=== PATIENT | female | born 1965 | race Caucasian/White ===

== ENCOUNTER 2016-10-08 01:58 | Inpatient (IN) ==
[2016-10-08] MEDS ORDERED: 0.9 % Sodium Chloride 1,000 ML IVC ONE (02:26)
--- NOTE | 2016-10-08 02:36 | Emergency Department Note ---
Disposition Clinical Impression: Encephalitis, Fever of unknown origin, Elevated lactic acid level Altered mental status Qualifiers: Altered mental status type: disorientation Qualified Code(s): R41.0 - Disorientation, unspecified Disposition: Admitted As Inpatient Condition: Fair General Adult HPI - General Chief complaint: ED Fall Stated complaint: fall x2 monday/temp Time Seen by Provider: 10/08/16 02:08 Source: patient, family Mode of arrival: wheelchair Limitations: no limitations Nursing Notes Reviewed: Yes Vital Signs Reviewed: Yes - History of Present Illness HPI Narrative: Patient presents to the ED with the chief complaint of altered mental status and fall. Patient fell twice yesterday evening and when she was checked on by family members. They noticed that she felt very hot and was also confused, talking "out of her head" presented and stated that she had a fever of 102 at home, headache, neck stiffness, generalized weakness and confusion. Denied any cough , abdominal pain, pain or swelling in her legs. She states that she always has left wrist pain and this is about her baseline. Pain Scale: 0 - Related Data Home Medications Medication Instructions Recorded Confirmed Amitriptyline HCl 100 mg PO HS 10/08/16 10/08/16 Aspirin [Lo-Dose Aspirin EC] 81 mg PO DAILY 10/08/16 10/08/16 Gabapentin [Neurontin] 800 mg PO TID 10/08/16 10/08/16 Glimepiride [Amaryl] 1 mg PO DAILY 10/08/16 10/08/16 Lisinopril [Zestril] 20 mg PO DAILY 10/08/16 10/08/16 Metformin HCl [Glucophage] 1,000 mg PO QAM 10/08/16 10/08/16 Pioglitazone [Actos] 15 mg PO DAILY 10/08/16 10/08/16 Previous Rx's Medication Instructions Recorded Hydrocodone/Acetaminophen [[place] 1 tab PO TID PRN #10 tab 09/08/15 5-325 Tablet] Allergies Allergy/AdvReac Type Severity Reaction Status Date / Time No Known Allergies Allergy Verified 10/08/16 02:06 All systems ED: reviewed and negative except as stated. Constitutional: Reports: fever, weakness Eyes: Denies: vision change Cardiovascular: Denies: chest pain Respiratory: Denies: dyspnea Gastrointestinal: Denies: abdominal pain Musculoskeletal: Reports: neck pain Integumentary: Denies: rash Neurological: Reports: headache Endocrine: Reports: fatigue Past Medical History - Past Medical History Attestation: Yes The following information was validated with the patient. Source: patient, old records reviewed, obtained from family Medical history: Reports: asthma, coronary artery disease, diabetes, fibromyalgia, hyperlipidemia, hypertension Psychiatric history: Reports: anxiety, depression [employer] CO[employer] history: Reports: bilateral tubal ligation - Social History Smoking Status: Never smoker Smokeless Tobacco Status: No Alcohol use: Reports: none Drug use: Reports: none Physical Exam - General Limitations: no limitations General appearance: alert, obese, other (Patient is alert but intermittently sleepy) - Head Head exam: atraumatic, normocephalic, normal inspection - Eye Eye exam: Present: normal appearance, PERRL, EOMI. Absent: scleral icterus, conjunctival injection - ENT ENT exam: normal exam, normal oropharynx, mucous membranes moist - Neck Neck exam: Present: normal inspection, full ROM, trachea midline. Absent: meningismus (Patient unable to fully flex her neck. However, this does cause her to have pain. There is no stiffness) - Chest Chest inspection: Present: normal inspection, symmetric chest wall rise - Respiratory Respiratory exam: Present: normal lung sounds bilaterally - Cardiovascular Cardiovascular exam: Present: regular rate, normal rhythm, normal heart sounds - Abdominal Exam Abdominal exam: Present: soft, Non-Tender. Absent: tenderness, distention, guarding, rebound, rigidity - Extremities Exam Extremities exam: Present: normal inspection, full ROM. Absent: tenderness, pedal edema - Neurological Exam Neurological exam: Present: alert, oriented X3, CN II-XII intact - Expanded Neurological Exam Patient oriented to: Present: person, place, time Speech: Present: fluid speech (Patient does have fluid speech, but does seem to have difficulty initiating her response) Cranial nerves: EOM function (II, III, IV, ): Normal, facial sensation (V): Normal, facial palsy (VII): Normal, spinal accessory function (XI): Normal, tongue deviation (XII): Normal Cerebellar function: finger to nose: Normal Motor strength - LUE: 5/5 Motor strength - RUE: 5/5 Motor strength - LLE: 4/5 Motor strength - RLE: 4/5 Upper motor neuron exam: jasmin neglect: Absent bilaterally, pronator drift: Absent bilaterally Sensory exam upper extremity: light touch: Normal Sensory exam lower extremity: light touch: Normal Coma Scale Eye Opening: To Voice Coma Scale Motor Response: Obeys Commands Coma Scale Verbal Response: Confused Coma Scale Total: 13 - Psychiatric Psychiatric exam: Present: flat affect - Skin Skin exam: Present: warm, dry, intact, normal color Course Course Narrative: 50-year-old female presenting with altered mental status, fever and neck stiffness. Family stating the patient's intermittently confused and she is intermittently confused here. Sometimes she is alert and responding appropriately, other times she remains alert, but will respond inappropriately to questions. She meets sepsis criteria, sepsis versus initiated, patient may need a lumbar puncture if an initial workup does not reveal a source for fever as this could be a encephalitis. I think meningitis is much less likely, but also will keep in our differential - Reevaluation(s) Reevaluation #1: Patient does have an elevated lactic acid and has remained confused. We will proceed with lumbar puncture and order antibiotics at this time with a presumptive diagnosis of meningitis versus encephalitis. Time: 03:47 Vital Signs Temperature 102.9 F H 10/08/16 02:02 Pulse Rate 127 10/08/16 02:02 Respiratory Rate 18 10/08/16 02:02 Blood Pressure 131/66 10/08/16 02:02 O2 Sat by Pulse Oximetry 92 10/08/16 02:02 Temperature 102.0 F H 10/08/16 18:22 Pulse Rate 125 10/08/16 18:22 Respiratory Rate 20 10/08/16 18:22 Blood Pressure 101/63 10/08/16 18:22 O2 Sat by Pulse Oximetry 95 10/08/16 18:22 Oxygen Delivery Oxygen Delivery Room Air Procedures - Lumbar Puncture Consent Obtained: written consent Time Out Performed: Yes Patient Position: upright Skin Prep: Povidone-Iodine 1% Local Anesthetic: lidocaine 1% Amount of anesthesia used (mL): 3 Spinal Needle Gauge: 22G Interspace Used: L4-L5 Fluid Initially Obtained: clear Complications: none Medical Decision Making - Medical Records Medical records reviewed: Yes I reviewed the patient's medical records. - Lab Data Lab results reviewed: Yes I reviewed the patient's lab results. Result diagrams: 10/08/16 02:40 10/08/16 02:40 Lab Results 08/12/17 08/12/17 08/12/17 Range/Units 02:15 02:40 02:40 WBC 9.9 (4.3-11.1) K/mcL RBC 4.79 (3.82-4.97) M/mcL Hgb 13.8 (11.5-15.4) g/dL Hct 42.0 (35.3-44.9) % MCV 87.7 (83.0-100.0) fL MCH 28.8 (28.0-33.3) pg MCHC 32.9 (31.6-35.5) g/dL RDW 13.1 (11.5-14.5) % Plt Count 355 (140-400) K/mcL MPV 9.1 L (9.4-12.4) fL Immature Gran % 0.7 (0-4) % Seg Neutrophils % 85.7 % Lymphocytes % 6.8 % Monocytes % 6.4 % Eosinophils % 0.0 % Basophils % 0.4 % Neutrophils # 8.5 (1.6-8.9) K/mcL Lymphocytes # 0.7 (0.6-4.6) K/mcL Monocytes # 0.6 (0.0-1.3) K/mcL Eosinophils # 0.0 (0.0-0.6) K/mcL Basophils # 0.0 (0.0-0.2) K/mcL Immature Plt Fraction 1.4 (1.1-6.1) % PT 13.0 H (9.4-12.1) Seconds INR 1.2 APTT 32.0 (26.0-36.0) Seconds Sodium (136-145) mEq/L Potassium (3.5-4.5) mEq/L Chloride (98-109) mEq/L Carbon Dioxide (19-29) mEq/L BUN (7-20) mg/dL Creatinine (0.57-1.11) mg/dL Est GFR ( Amer) (> 60) Est GFR (Non-Af Amer) (> 60) BUN/Creatinine Ratio (6-26) Glucose (70-99) mg/dL POC Glucose 376 H (58-89) Calculated Osmolality (280-300) Lactic Acid (0.5-2.2) mmol/L Calcium (8.6-10.8) mg/dL Phosphorus (2.3-4.7) mg/dL Magnesium (1.6-2.6) mg/dL Total Bilirubin (0.2-1.2) mg/dL Direct Bilirubin (0.0-0.5) mg/dL Indirect Bilirubin (0.0-1.2) mg/dL AST (5-34) Units/L ALT (0-55) Units/L Alkaline Phosphatase (38-126) Units/L Troponin I (0-0.03) ng/mL Serum Total Protein (6.0-8.3) g/dL Albumin (3.5-5.0) g/dL Globulin (2.4-3.5) g/dL Albumin/Globulin Ratio (1.1-2.2) Urine Color (Yellow) Urine Clarity (Clear) Urine pH (5.0-8.0) pH Units Ur Specific [place] (1.010-1.025) Urine Protein (Neg-Trace) mg/dL Urine Glucose (UA) (Normal) mg/dL Urine Ketones (Negative) mg/dL Urine Blood (Negative) Urine Nitrite (Negative) Urine Bilirubin (Negative) Urine Urobilinogen (Normal) mg/dL Ur Leukocyte Esterase (Negative) Urine Microscopic RBC (0-3) per hpf Ur Squamous Epith Cells (None-Few) per lpf Urine Bacteria (None-Few) per hpf Hyaline Casts (None-Few) per lpf Ur Culture Indicated? (NO) Fluid Source Fluid Volume mL Fluid Appearance (Clear) Fluid RBC (No Ref Range) M/mcL Fld Tot Nucleated Cell (No Ref Range) TNC/mcL Fluid Seg Neutrophil % Fld Band Neutrophil % Fluid Lymphocytes % Fluid Monocytes % Fluid Eosinophils % Fluid Basophils % Fluid Other Cells % CSF Volume CSF Appearance CSF Color CSF RBC CSF Tot Nucleated Cells CSF Seg Neutrophils CSF Band Neutrophils % CSF Lymphocytes % CSF Monocytes % CSF Eosinophils % CSF Basophils % CSF Other Cells % CSF Glucose (40-70) mg/dL CSF Xanth Comm (Not Observe) CSF Total Protein (15-45) mg/dL Urine Opiates Screen (Iwvnxa=006) ng/mL Ur Barbiturates Screen (Mprtyf=803) ng/mL Ur Phencyclidine Scrn (Cutoff=25) ng/mL Ur Amphetamines Screen (Kmgvvz=7626) ng/mL U Benzodiazepines Scrn (Hqfezx=377) ng/mL Urine Cocaine Screen (Cutoff= 300) ng/mL U Marijuana (THC) Screen (Cutoff = 50) ng/mL 08/12/17 08/12/17 08/12/17 Range/Units 02:40 02:40 02:40 WBC (4.3-11.1) K/mcL RBC (3.82-4.97) M/mcL Hgb (11.5-15.4) g/dL Hct (35.3-44.9) % MCV (83.0-100.0) fL MCH (28.0-33.3) pg MCHC (31.6-35.5) g/dL RDW (11.5-14.5) % Plt Count (140-400) K/mcL MPV (9.4-12.4) fL Immature Gran % (0-4) % Seg Neutrophils % % Lymphocytes % % Monocytes % % Eosinophils % % Basophils % % Neutrophils # (1.6-8.9) K/mcL Lymphocytes # (0.6-4.6) K/mcL Monocytes # (0.0-1.3) K/mcL Eosinophils # (0.0-0.6) K/mcL Basophils # (0.0-0.2) K/mcL Immature Plt Fraction (1.1-6.1) % PT (9.4-12.1) Seconds INR APTT (26.0-36.0) Seconds Sodium 136 (136-145) mEq/L Potassium 4.6 H (3.5-4.5) mEq/L Chloride 98 (98-109) mEq/L Carbon Dioxide 24 (19-29) mEq/L BUN 12 (7-20) mg/dL Creatinine 0.97 (0.57-1.11) mg/dL Est GFR ( Amer) > 60 (> 60) Est GFR (Non-Af Amer) > 60 (> 60) BUN/Creatinine Ratio 12 (6-26) Glucose 392 H (70-99) mg/dL POC Glucose (58-89) Calculated Osmolality 298 (280-300) Lactic Acid 2.9 H (0.5-2.2) mmol/L Calcium 10.1 (8.6-10.8) mg/dL Phosphorus 2.7 (2.3-4.7) mg/dL Magnesium 1.5 L (1.6-2.6) mg/dL Total Bilirubin 0.5 (0.2-1.2) mg/dL Direct Bilirubin 0.2 (0.0-0.5) mg/dL Indirect Bilirubin 0.3 (0.0-1.2) mg/dL AST 40 H (5-34) Units/L ALT 49 (0-55) Units/L Alkaline Phosphatase 107 (38-126) Units/L Troponin I 0.02 (0-0.03) ng/mL Serum Total Protein 8.0 (6.0-8.3) g/dL Albumin 3.6 (3.5-5.0) g/dL Globulin 4.4 H (2.4-3.5) g/dL Albumin/Globulin Ratio 0.8 L (1.1-2.2) Urine Color (Yellow) Urine Clarity (Clear) Urine pH (5.0-8.0) pH Units Ur Specific [place] (1.010-1.025) Urine Protein (Neg-Trace) mg/dL Urine Glucose (UA) (Normal) mg/dL Urine Ketones (Negative) mg/dL Urine Blood (Negative) Urine Nitrite (Negative) Urine Bilirubin (Negative) Urine Urobilinogen (Normal) mg/dL Ur Leukocyte Esterase (Negative) Urine Microscopic RBC (0-3) per hpf Ur Squamous Epith Cells (None-Few) per lpf Urine Bacteria (None-Few) per hpf Hyaline Casts (None-Few) per lpf Ur Culture Indicated? (NO) Fluid Source Fluid Volume mL Fluid Appearance (Clear) Fluid RBC (No Ref Range) M/mcL Fld Tot Nucleated Cell (No Ref Range) TNC/mcL Fluid Seg Neutrophil % Fld Band Neutrophil % Fluid Lymphocytes % Fluid Monocytes % Fluid Eosinophils % Fluid Basophils % Fluid Other Cells % CSF Volume CSF Appearance CSF Color CSF RBC CSF Tot Nucleated Cells CSF Seg Neutrophils CSF Band Neutrophils % CSF Lymphocytes % CSF Monocytes % CSF Eosinophils % CSF Basophils % CSF Other Cells % CSF Glucose (40-70) mg/dL CSF Xanth Comm (Not Observe) CSF Total Protein (15-45) mg/dL Urine Opiates Screen (Boofjq=027) ng/mL Ur Barbiturates Screen (Suqhxt=295) ng/mL Ur Phencyclidine Scrn (Cutoff=25) ng/mL Ur Amphetamines Screen (Davdfd=8171) ng/mL U Benzodiazepines Scrn (Wwhjil=226) ng/mL Urine Cocaine Screen (Cutoff= 300) ng/mL U Marijuana (THC) Screen (Cutoff = 50) ng/mL 10/08/16 10/08/16 10/08/16 Range/Units 04:15 04:15 04:42 WBC (4.3-11.1) K/mcL RBC (3.82-4.97) M/mcL Hgb (11.5-15.4) g/dL Hct (35.3-44.9) % MCV (83.0-100.0) fL MCH (28.0-33.3) pg MCHC (31.6-35.5) g/dL RDW (11.5-14.5) % Plt Count (140-400) K/mcL MPV (9.4-12.4) fL Immature Gran % (0-4) % Seg Neutrophils % % Lymphocytes % % Monocytes % % Eosinophils % % Basophils % % Neutrophils # (1.6-8.9) K/mcL Lymphocytes # (0.6-4.6) K/mcL Monocytes # (0.0-1.3) K/mcL Eosinophils # (0.0-0.6) K/mcL Basophils # (0.0-0.2) K/mcL Immature Plt Fraction (1.1-6.1) % PT (9.4-12.1) Seconds INR APTT (26.0-36.0) Seconds Sodium (136-145) mEq/L Potassium (3.5-4.5) mEq/L Chloride (98-109) mEq/L Carbon Dioxide (19-29) mEq/L BUN (7-20) mg/dL Creatinine (0.57-1.11) mg/dL Est GFR ( Amer) (> 60) Est GFR (Non-Af Amer) (> 60) BUN/Creatinine Ratio (6-26) Glucose (70-99) mg/dL POC Glucose (58-89) Calculated Osmolality (280-300) Lactic Acid (0.5-2.2) mmol/L Calcium (8.6-10.8) mg/dL Phosphorus (2.3-4.7) mg/dL Magnesium (1.6-2.6) mg/dL Total Bilirubin (0.2-1.2) mg/dL Direct Bilirubin (0.0-0.5) mg/dL Indirect Bilirubin (0.0-1.2) mg/dL AST (5-34) Units/L ALT (0-55) Units/L Alkaline Phosphatase (38-126) Units/L Troponin I (0-0.03) ng/mL Serum Total Protein (6.0-8.3) g/dL Albumin (3.5-5.0) g/dL Globulin (2.4-3.5) g/dL Albumin/Globulin Ratio (1.1-2.2) Urine Color Yellow (Yellow) Urine Clarity Hazy A (Clear) Urine pH 6.0 (5.0-8.0) pH Units Ur Specific [place] > 1.030 H (1.010-1.025) Urine Protein Negative (Neg-Trace) mg/dL Urine Glucose (UA) >=1000 H (Normal) mg/dL Urine Ketones Trace H (Negative) mg/dL Urine Blood Negative (Negative) Urine Nitrite Negative (Negative) Urine Bilirubin Negative (Negative) Urine Urobilinogen Normal (Normal) mg/dL Ur Leukocyte Esterase Negative (Negative) Urine Microscopic RBC 0-3 (0-3) per hpf Ur Squamous Epith Cells Many H (None-Few) per lpf Urine Bacteria Many H (None-Few) per hpf Hyaline Casts None Seen (None-Few) per lpf Ur Culture Indicated? NO (NO) Fluid Source Fluid Volume mL Fluid Appearance (Clear) Fluid RBC (No Ref Range) M/mcL Fld Tot Nucleated Cell (No Ref Range) TNC/mcL Fluid Seg Neutrophil % Fld Band Neutrophil % Fluid Lymphocytes % Fluid Monocytes % Fluid Eosinophils % Fluid Basophils % Fluid Other Cells % CSF Volume TNP CSF Appearance TNP CSF Color TNP CSF RBC TNP CSF Tot Nucleated Cells TNP CSF Seg Neutrophils TNP CSF Band Neutrophils % TNP CSF Lymphocytes % TNP CSF Monocytes % TNP CSF Eosinophils % TNP CSF Basophils % TNP CSF Other Cells % TNP CSF Glucose 166 H (40-70) mg/dL CSF Xanth Comm Not Observed (Not Observe) CSF Total Protein 57 H (15-45) mg/dL Urine Opiates Screen Negative (Mmtfkb=332) ng/mL Ur Barbiturates Screen Negative (Gaulvz=995) ng/mL Ur Phencyclidine Scrn Negative (Cutoff=25) ng/mL Ur Amphetamines Screen Negative (Yxhqen=3492) ng/mL U Benzodiazepines Scrn Negative (Nbcrmr=639) ng/mL Urine Cocaine Screen Negative (Cutoff= 300) ng/mL U Marijuana (THC) Screen Negative (Cutoff = 50) ng/mL 10/08/16 10/08/16 Range/Units 04:42 05:17 WBC (4.3-11.1) K/mcL RBC (3.82-4.97) M/mcL Hgb (11.5-15.4) g/dL Hct (35.3-44.9) % MCV (83.0-100.0) fL MCH (28.0-33.3) pg MCHC (31.6-35.5) g/dL RDW (11.5-14.5) % Plt Count (140-400) K/mcL MPV (9.4-12.4) fL Immature Gran % (0-4) % Seg Neutrophils % % Lymphocytes % % Monocytes % % Eosinophils % % Basophils % % Neutrophils # (1.6-8.9) K/mcL Lymphocytes # (0.6-4.6) K/mcL Monocytes # (0.0-1.3) K/mcL Eosinophils # (0.0-0.6) K/mcL Basophils # (0.0-0.2) K/mcL Immature Plt Fraction (1.1-6.1) % PT (9.4-12.1) Seconds INR APTT (26.0-36.0) Seconds Sodium (136-145) mEq/L Potassium (3.5-4.5) mEq/L Chloride (98-109) mEq/L Carbon Dioxide (19-29) mEq/L BUN (7-20) mg/dL Creatinine (0.57-1.11) mg/dL Est GFR ( Amer) (> 60) Est GFR (Non-Af Amer) (> 60) BUN/Creatinine Ratio (6-26) Glucose (70-99) mg/dL POC Glucose (58-89) Calculated Osmolality (280-300) Lactic Acid 2.3 H (0.5-2.2) mmol/L Calcium (8.6-10.8) mg/dL Phosphorus (2.3-4.7) mg/dL Magnesium (1.6-2.6) mg/dL Total Bilirubin (0.2-1.2) mg/dL Direct Bilirubin (0.0-0.5) mg/dL Indirect Bilirubin (0.0-1.2) mg/dL AST (5-34) Units/L ALT (0-55) Units/L Alkaline Phosphatase (38-126) Units/L Troponin I (0-0.03) ng/mL Serum Total Protein (6.0-8.3) g/dL Albumin (3.5-5.0) g/dL Globulin (2.4-3.5) g/dL Albumin/Globulin Ratio (1.1-2.2) Urine Color (Yellow) Urine Clarity (Clear) Urine pH (5.0-8.0) pH Units Ur Specific [place] (1.010-1.025) Urine Protein (Neg-Trace) mg/dL Urine Glucose (UA) (Normal) mg/dL Urine Ketones (Negative) mg/dL Urine Blood (Negative) Urine Nitrite (Negative) Urine Bilirubin (Negative) Urine Urobilinogen (Normal) mg/dL Ur Leukocyte Esterase (Negative) Urine Microscopic RBC (0-3) per hpf Ur Squamous Epith Cells (None-Few) per lpf Urine Bacteria (None-Few) per hpf Hyaline Casts (None-Few) per lpf Ur Culture Indicated? (NO) Fluid Source CSF Fluid Volume 4 mL Fluid Appearance Clear (Clear) Fluid RBC < 0.002 (No Ref Range) M/mcL Fld Tot Nucleated Cell 5 (No Ref Range) TNC/mcL Fluid Seg Neutrophil % TNP Fld Band Neutrophil % TNP Fluid Lymphocytes % TNP Fluid Monocytes % TNP Fluid Eosinophils % TNP Fluid Basophils % TNP Fluid Other Cells % TNP CSF Volume CSF Appearance CSF Color CSF RBC CSF Tot Nucleated Cells CSF Seg Neutrophils CSF Band Neutrophils % CSF Lymphocytes % CSF Monocytes % CSF Eosinophils % CSF Basophils % CSF Other Cells % CSF Glucose (40-70) mg/dL CSF Xanth Comm (Not Observe) CSF Total Protein (15-45) mg/dL Urine Opiates Screen (Keotqn=818) ng/mL Ur Barbiturates Screen (Svjccp=747) ng/mL Ur Phencyclidine Scrn (Cutoff=25) ng/mL Ur Amphetamines Screen (Xtcajd=9701) ng/mL U Benzodiazepines Scrn (Rjsbfv=125) ng/mL Urine Cocaine Screen (Cutoff= 300) ng/mL U Marijuana (THC) Screen (Cutoff = 50) ng/mL - Radiology Data Radiology results reviewed: Yes I reviewed the patient's radiology results. - EKG Data EKG #1 EKG attestation: Yes I reviewed and interpreted this EKG. EKG results narrative: Sinus tach, rate 125, SC interval 172, QRS 116, QTC 366, left anterior fascicular block, J-point elevation in V1 and V2, but similar morphology to previous Attestation Statement - Attestation Attestation: I, Singh Aparicio, examined this patient and my medical decision-making was reviewed with the FULL TIME PARAMEDIC/PA/Advanced Practice Nurse/Resident Physician. I agree with the documented findings, disposition and treatment plan as described except to the extent set forth below. 50-year-old female brought in by family for concerns of fever and altered mental status. They state that she has had multiple falls and is confused, unable to have a full conversation. During the evaluation he should not is able to answer questions however she has an ataxic gait. Patient also states that she has a headache and neck pain for the past few hours prior to arrival. Patient had a fever in the emergency department. With concern for possible meningitis. Patient was given empiric Biotics, she had a head CT and a lumbar puncture. CSF results did not reveal evidence of bacterial infection although this is likely a viral meningitis. Patient was started on acyclovir. Pt admitted to the hospital for further care and evaluation.
[2016-10-08 02:50] LABS: Basophils % 0.4 %; Hemoglobin 13.8 g/dL (11.5-15.4); Immature Granulocytes % 0.7 % (0-4); Immature Platelets 1.4 % (1.1-6.1); Lymphocytes # 0.7 K/mcL (0.6-4.6); Lymphocytes % 6.8 %; Mean Corpuscular HGB Conc 32.9 g/dL (31.6-35.5); Mean Corpuscular Hemoglobin 28.8 pg (28.0-33.3); Mean Corpuscular Volume 87.7 fL (83.0-100.0); Mean Platelet Volume 9.1 fL (9.4-12.4); Monocytes # 0.6 K/mcL (0.0-1.3); Monocytes % 6.4 %; Neutrophils # 8.5 K/mcL (1.6-8.9); Platelet Count 355 K/mcL (140-400); Red Blood Count 4.79 M/mcL (3.82-4.97); Red Cell Distribution Width 13.1 % (11.5-14.5); Segmented Neutrophils % 85.7 %
[2016-10-08 02:57] LABS: INR 1.2
[2016-10-08 03:05] LABS: Alanine Aminotransferase 49 Units/L (0-55); Albumin 3.6 g/dL (3.5-5.0); Albumin/Globulin Ratio 0.8 (1.1-2.2); Alkaline Phosphatase 107 Units/L (38-126); Aspartate Amino Transferase 40 Units/L (5-34); BUN/Creatinine Ratio 12 (6-26); Bilirubin,Direct 0.2 mg/dL (0.0-0.5); Bilirubin,Indirect 0.3 mg/dL (0.0-1.2); Bilirubin,Total 0.5 mg/dL (0.2-1.2); Blood Urea Nitrogen 12 mg/dL (7-20); Calcium 10.1 mg/dL (8.6-10.8); Carbon Dioxide 24 mEq/L (19-29); Chloride 98 mEq/L (98-109); Globulin 4.4 g/dL (2.4-3.5); Glucose 392 mg/dL (70-99); Magnesium 1.5 mg/dL (1.6-2.6); Osmolality,Calculated 298 (280-300); Phosphorous 2.7 mg/dL (2.3-4.7); Potassium 4.6 mEq/L (3.5-4.5); Sodium 136 mEq/L (136-145); eGFR For African Americans > 60 (> 60); eGFR For Non-African Americans > 60 (> 60)
[2016-10-08] MEDS ORDERED: 0.9 % Sodium Chloride 1,000 ML IVC SCH (03:30)
[2016-10-08] MEDS ORDERED: Ibuprofen 600 MG TABLET PO ONE (03:43)
[2016-10-08] MEDS ORDERED: Vancomycin (wt based) 1,000 MG VIAL IVPB STA (03:44)
[2016-10-08] MEDS ORDERED: Vancomycin 2,000 MG in D5% in Water 500 ML IVPB ONE (04:00)
[2016-10-08] MEDS ORDERED: Lidocaine/EPI 1:200k 1% PF 10 ML VIAL ONE (04:23)
[2016-10-08 04:36] LABS: Bilirubin,Urine Negative (Negative); Blood,Urine Negative (Negative); Color,Urine Yellow (Yellow); Glucose,Urine (UA) >=1000 mg/dL (Normal); Ketones,Urine Trace mg/dL (Negative); Leukocyte Esterase,Urine Negative (Negative); Nitrite,Urine Negative (Negative); Protein,Urine Negative (Neg-Trace); Specific Gravity,Urine > 1.030 (1.010-1.025); Urobilinogen,Urine Normal (Normal)
[2016-10-08 04:40] LABS: Bacteria,Urine Many per hpf (None-Few); Clarity,Urine Hazy (Clear); Hyaline Casts,Urine None Seen per lpf (None-Few); RBC,Urine 0-3 per hpf (0-3); Squamous Epithelial Cell,Urine Many per lpf (None-Few)
[2016-10-08 05:07] LABS: Appearance of Body Fluid Clear (Clear); Source of Body Fluid CSF
[2016-10-08 05:08] LABS: Volume of Body Fluid 4 mL
[2016-10-08 05:23] LABS: Glucose,CSF 166 mg/dL (40-70); Total Protein,CSF 57 mg/dL (15-45)
[2016-10-08] MEDS ORDERED: Acyclovir 500 MG in D5% in Water 250 ML IVPB ONE (05:38)
[2016-10-08 06:57] LABS: Amphetamine Screen,Urine Negative ng/mL (Cutoff=1000); Barbiturate Screen,Urine Negative ng/mL (Cutoff=200); Benzodiazepines Screen,Urine Negative ng/mL (Cutoff=200); Cannabinoid Screen,Urine Negative ng/mL (Cutoff = 50); Cocaine Screen,Urine Negative ng/mL (Cutoff= 300); Opiate Screen,Urine Negative ng/mL (Cutoff=300); Phencyclidine Screen,Urine Negative ng/mL (Cutoff=25)
--- NOTE | 2016-10-08 08:39 | Internal Med History&Physical ---
Date of Encounter: 10/08/16 Time of Encounter: 08:17 Assessment and Plan (1) Altered mental status Current visit: Yes Status: Acute currently at baseline,as per the family she sounds intermittently confused at this time, appears orinetdx3. possible 2/2 viral encephalitis. neuro has been consulted no other source identified at this time metabolic panel is wnl/ Qualifiers: Altered mental status type: disorientation Qualified Code(s): R41.0 - Disorientation, unspecified (2) Diabetes Current visit: Yes Status: Acute will keep on low dose sliding scale for now. Qualifiers: Qualified Code(s): E11.9 - Type 2 diabetes mellitus without complications (3) Encephalitis Current visit: Yes Status: Acute presented with fever and AMS at home CT head is negative LP showed elevated protein and glucose with white cell count of 5. has been emperically started on IV antibiotics and acyclovir case discussed with neurology, will consult. recommend MRI , HSV serology and continue acyclovir for now. given elevated protein in CSF, fever and confusion, possible viral encephalitis. fall precautions, cultures has been sent from ED. Internal Medicine - H&P: HPI Chief complaint: fall and AMS Admitted From: Home Plans for Post Hospital Care: Home History of present illness: Ms. Wood is a 50 year old female with PMH of HTN, DM presented with c/o fall and confusion. as per the , she was in her usual state of health when she woke up at nigght and was confused. she went to the bathroom and had a fall. she c/o headache and fever taht started last night with chills she denies being ill prior to this. no h/o cough, ,chest pain, sob, LOC, seizures. no h/o travel, tick bites, sick contacts. no h/o n/v/d, abdominal pain. Past Med Surg Social Fam HX - Past Medical History Medical history: asthma, coronary artery disease, diabetes, fibromyalgia, hyperlipidemia, hypertension Psychiatric history: anxiety, depression - Social History Smoking Status: Never smoker Smokeless Tobacco Status: No Alcohol use: none Drug use: none Internal Medicine - H&P: Meds Hydrocodone/Acetaminophen [[place] 5-325 Tablet] 1 tab PO TID PRN #10 tab [Rx] Ondansetron HCl [Zofran] 4 mg PO Q6H #20 tablet 09/08/15 [Rx] Allergies No Known Allergies Allergy (Verified 10/08/16 02:06) All Systems PM: A 10-system review of systems was performed and is negative for pertinent findings except as documented above in the HPI. - Constitutional Constitutional: as per HPI - EENT Eyes: as per HPI Ears: as per HPI Nose, mouth and throat: as per HPI - Breasts Breasts: as per HPI - Cardiovascular Cardiovascular ROS IM: as per HPI - Respiratory Respiratory: as per HPI - Gastrointestinal Gastrointestinal: as per HPI - Genitourinary Genitourinary: as per HPI Menstruation: as per HPI - Musculoskeletal Musculoskeletal ROS IM: as per HPI - Integumentary Integumentary IM: as per HPI - Neurological Neurological ROS: as per HPI - Psychiatric Psychiatric: as per HPI - Endocrine Endocrine IM: as per HPI - Hematologic/Lymphatic Hematologic/Lymphatic: as per HPI - Allergic/Immunologic Allergic/Immunologic: as per HPI - Constitutional Vitals: Temp Pulse Resp BP Pulse Ox 100.2 F H 106 25 108/49 95 10/08/16 05:30 10/08/16 07:42 10/08/16 07:42 10/08/16 07:42 10/08/16 07:42 General appearance: Present: A&O X 3 Exam: neck- stiffness chest- b/l clear, no added sounds CVS-s1 and s2, no mr//g abd-soft, non tender, bs are present, has a scabbed ext- no edema neuro- alert and awake, oriented x3 Internal Med - H&P Results - Labs CBC & Chem 7: 10/08/16 02:40 10/08/16 02:40
[2016-10-08] MEDS ORDERED: Naloxone 0.4 MG/ML INJ IVP PRN (08:58)
[2016-10-08] MEDS ORDERED: Acetaminophen 325 MG TABLET PO PRN (09:01)
[2016-10-08] MEDS ORDERED: *HR* Dextrose 50 % in Water (Syg) 50 ML SYRINGE IVP PRN (09:02)
[2016-10-08] MEDS ORDERED: Dextrose Gel 15 GM PO PRN ×2 (09:02)
[2016-10-08] MEDS ORDERED: D5% in Water 1,000 ML IVC PRN (09:02)
[2016-10-08] MEDS ORDERED: *HR* LORazepam 2 MG/ML VIAL IVP ONE (09:45)
[2016-10-08] MEDS ORDERED: Insulin LISPRO 300 UNITS/3 ML VIAL SQ SCH ×2 (11:30→21:00)
--- NOTE | 2016-10-08 12:13 | Neurology - Consult Note ---
Date of Encounter: 10/08/16 Time of Encounter: 12:05 Assessment and Plan (1) Altered mental status Current Visit: Yes Status: Acute 50-year old woman with sudden-onset fever, AMS, now responding to acyclovir/abx , benign CSF, with possible HSV encephalitis or other viral encephalitis. Given her history of CARLITO positivity, should evaluate for vasculitis/lupus cerebritis, and other infections (Syphilis). Additional evaluations as ordered. Delivery Lead/STD infections - per primary team continue acyclovir for now. HSV PCR pending If worsens, may need angiographic studies. Will follow. Qualifiers: Altered mental status type: disorientation Qualified Code(s): R41.0 - Disorientation, unspecified History of Present Illness Chief complaint: fever and AMS HPI: Ms. Wood is a 50 year old female with history of diabetes, prior diagnosis of CARLITO positivity, recent history of myalgias, and sudden onset fever, AMS yesterday night. When she was asked to go to the bathroom, she ended up going in the closet. She was given abx and acyclovir at the ER yesterday, following a temperature of 100.2 and since then she has been doing fine. She was told that she has a rash, and that she is CARLITO positive and the possibility of SLE is being explored (Rheum consult on Oct 24, pending). She is a biker and she thought the rash was from sun exposure. She reports no recent infections, although she has chronic yeast infection - 2 years. She has not seen a Delivery Lead doctor in the last 3 years however. Denies cold sores or sores in her genitals. Past Med Surg Social Fam HX - Past Medical History Medical history: asthma, coronary artery disease, diabetes, fibromyalgia, hyperlipidemia, hypertension Psychiatric history: anxiety, depression - Social History Smoking Status: Never smoker Smokeless Tobacco Status: No Alcohol use: none Drug use: none Medications and Allergies Hydrocodone/Acetaminophen [[place] 5-325 Tablet] 1 tab PO TID PRN #10 tab [Rx] Ondansetron HCl [Zofran] 4 mg PO Q6H #20 tablet 09/08/15 [Rx] Allergies No Known Allergies Allergy (Verified 10/08/16 02:06) All Systems: A 10-system review of systems was performed and is negative for pertinent findings except as documented above in the HPI. Physical Examination - Vital Signs Vital Signs: Initial Vital Signs Temp Pulse Resp BP Pulse Ox 102.9 F H 127 18 131/66 92 10/08/16 02:02 10/08/16 02:02 10/08/16 02:02 10/08/16 02:02 10/08/16 02:02 Vital Signs - 24 hr 10/08/16 02:02 10/08/16 02:28 10/08/16 02:30 Temperature 102.9 F H Pulse Rate 127 124 Respiratory Rate 18 Blood Pressure 131/66 143/79 O2 Sat by Pulse Oximetry 92 94 93 10/08/16 04:25 10/08/16 04:43 10/08/16 05:30 Temperature 100.2 F H Pulse Rate 125 117 108 Respiratory Rate 20 16 Blood Pressure 133/70 101/56 102/60 O2 Sat by Pulse Oximetry 95 96 96 10/08/16 06:35 10/08/16 07:42 10/08/16 08:29 Temperature Pulse Rate 108 106 Respiratory Rate 20 25 20 Blood Pressure 111/66 108/49 93/63 O2 Sat by Pulse Oximetry 96 95 10/08/16 09:23 Temperature 99.1 F Pulse Rate 98 Respiratory Rate 15 Blood Pressure 102/65 O2 Sat by Pulse Oximetry 97 - Exam Exam: slowed mentation, has generalized red rash, macular, blanchable. no focal deficits, but has subtle right left disorientation. - Constitutional General appearance: acutely ill - Neurologic Sensorimotor examination: intact Detailed motor examination: other (generalized weakness) Detailed sensory examination: intact Reflexes: Biceps: 1+, Triceps: 1+, Brachioradialis: 1+, Patella: 2+, Achilles: 2 + (mute toes) Mental Status Examination: awake (normal mentation, but slow in calculation), alert, oriented to person, oriented to place, oriented to time, follows commands appropriately, answers questions appropriately, no agnosia, no aphasia , no aproxia Cranial nerve examination: PERRL, EOMI, visual bergman intact, corneal reflexes brisk symmetrically, sensory to face intact, mastication intact, no facial asymmetry is present, no dysarthria, hearing is intact symmetrically, soft palate elevates bilaterally upon phonation, gag reflex intact, flexes SCM and trapezius muscles symmetrically with full power, tongue protrudes midline, no atrophy or facial fasiculations present Cerebellar examination: no dysmetria, performs finger to nose and heel to carrington symmetrically without ataxia, no gait ataxia, no truncal ataxia, no difficulty with rapid alternating movements Results - Laboratory Findings CBC and BMP: 10/08/16 02:40 10/08/16 02:40 Abnormal lab findings: Abnormal lab results MPV 9.1 fL (9.4-12.4) L 10/08/16 02:40 PT 13.0 Seconds (9.4-12.1) H 10/08/16 02:40 Potassium 4.6 mEq/L (3.5-4.5) H 10/08/16 02:40 Glucose 392 mg/dL (70-99) H 10/08/16 02:40 POC Glucose 376 (58-89) H 10/08/16 02:15 Lactic Acid 2.3 mmol/L (0.5-2.2) H 10/08/16 05:17 Magnesium 1.5 mg/dL (1.6-2.6) L 10/08/16 02:40 AST 40 Units/L (5-34) H 10/08/16 02:40 Globulin 4.4 g/dL (2.4-3.5) H 10/08/16 02:40 Albumin/Globulin Ratio 0.8 (1.1-2.2) L 10/08/16 02:40 Urine Clarity Hazy (Clear) A 10/08/16 04:15 Ur Specific [place] > 1.030 (1.010-1.025) H 10/08/16 04:15 Urine Glucose (UA) >=1000 mg/dL (Normal) H 10/08/16 04:15 Urine Ketones Trace mg/dL (Negative) H 10/08/16 04:15 Ur Squamous Epith Cells Many per lpf (None-Few) H 10/08/16 04:15 Urine Bacteria Many per hpf (None-Few) H 10/08/16 04:15 CSF Glucose 166 mg/dL (40-70) H 10/08/16 04:42 CSF Total Protein 57 mg/dL (15-45) H 10/08/16 04:42 Laboratory Results WBC 9.9 K/mcL (4.3-11.1) 10/08/16 02:40 RBC 4.79 M/mcL (3.82-4.97) 10/08/16 02:40 Hgb 13.8 g/dL (11.5-15.4) 10/08/16 02:40 Hct 42.0 % (35.3-44.9) 10/08/16 02:40 MCV 87.7 fL (83.0-100.0) 10/08/16 02:40 MCH 28.8 pg (28.0-33.3) 10/08/16 02:40 MCHC 32.9 g/dL (31.6-35.5) 10/08/16 02:40 RDW 13.1 % (11.5-14.5) 10/08/16 02:40 Plt Count 355 K/mcL (140-400) 10/08/16 02:40 MPV 9.1 fL (9.4-12.4) L 10/08/16 02:40 Immature Gran % 0.7 % (0-4) 10/08/16 02:40 Seg Neutrophils % 85.7 % 10/08/16 02:40 Lymphocytes % 6.8 % 10/08/16 02:40 Monocytes % 6.4 % 10/08/16 02:40 Eosinophils % 0.0 % 10/08/16 02:40 Basophils % 0.4 % 10/08/16 02:40 Neutrophils # 8.5 K/mcL (1.6-8.9) 10/08/16 02:40 Lymphocytes # 0.7 K/mcL (0.6-4.6) 10/08/16 02:40 Monocytes # 0.6 K/mcL (0.0-1.3) 10/08/16 02:40 Eosinophils # 0.0 K/mcL (0.0-0.6) 10/08/16 02:40 Basophils # 0.0 K/mcL (0.0-0.2) 10/08/16 02:40 Immature Plt Fraction 1.4 % (1.1-6.1) 10/08/16 02:40 PT 13.0 Seconds (9.4-12.1) H 10/08/16 02:40 INR 1.2 10/08/16 02:40 APTT 32.0 Seconds (26.0-36.0) 10/08/16 02:40 Sodium 136 mEq/L (136-145) 10/08/16 02:40 Potassium 4.6 mEq/L (3.5-4.5) H 10/08/16 02:40 Chloride 98 mEq/L (98-109) 10/08/16 02:40 Carbon Dioxide 24 mEq/L (19-29) 10/08/16 02:40 BUN 12 mg/dL (7-20) 10/08/16 02:40 Creatinine 0.97 mg/dL (0.57-1.11) 10/08/16 02:40 Est GFR ( Amer) > 60 (> 60) 10/08/16 02:40 Est GFR (Non-Af Amer) > 60 (> 60) 10/08/16 02:40 BUN/Creatinine Ratio 12 (6-26) 10/08/16 02:40 Glucose 392 mg/dL (70-99) H 10/08/16 02:40 POC Glucose 376 (58-89) H 10/08/16 02:15 Calculated Osmolality 298 (280-300) 10/08/16 02:40 Lactic Acid 2.3 mmol/L (0.5-2.2) H 10/08/16 05:17 Calcium 10.1 mg/dL (8.6-10.8) 10/08/16 02:40 Phosphorus 2.7 mg/dL (2.3-4.7) 10/08/16 02:40 Magnesium 1.5 mg/dL (1.6-2.6) L 10/08/16 02:40 Total Bilirubin 0.5 mg/dL (0.2-1.2) 10/08/16 02:40 Direct Bilirubin 0.2 mg/dL (0.0-0.5) 10/08/16 02:40 Indirect Bilirubin 0.3 mg/dL (0.0-1.2) 10/08/16 02:40 AST 40 Units/L (5-34) H 10/08/16 02:40 ALT 49 Units/L (0-55) 10/08/16 02:40 Alkaline Phosphatase 107 Units/L (38-126) 10/08/16 02:40 Troponin I 0.02 ng/mL (0-0.03) 10/08/16 02:40 Serum Total Protein 8.0 g/dL (6.0-8.3) 10/08/16 02:40 Albumin 3.6 g/dL (3.5-5.0) 10/08/16 02:40 Globulin 4.4 g/dL (2.4-3.5) H 10/08/16 02:40 Albumin/Globulin Ratio 0.8 (1.1-2.2) L 10/08/16 02:40 Urine Color Yellow (Yellow) 10/08/16 04:15 Urine Clarity Hazy (Clear) A 10/08/16 04:15 Urine pH 6.0 pH Units (5.0-8.0) 10/08/16 04:15 Ur Specific [place] > 1.030 (1.010-1.025) H 10/08/16 04:15 Urine Protein Negative mg/dL (Neg-Trace) 10/08/16 04:15 Urine Glucose (UA) >=1000 mg/dL (Normal) H 10/08/16 04:15 Urine Ketones Trace mg/dL (Negative) H 10/08/16 04:15 Urine Blood Negative (Negative) 10/08/16 04:15 Urine Nitrite Negative (Negative) 10/08/16 04:15 Urine Bilirubin Negative (Negative) 10/08/16 04:15 Urine Urobilinogen Normal mg/dL (Normal) 10/08/16 04:15 Ur Leukocyte Esterase Negative (Negative) 10/08/16 04:15 Urine Microscopic RBC 0-3 per hpf (0-3) 10/08/16 04:15 Ur Squamous Epith Cells Many per lpf (None-Few) H 10/08/16 04:15 Urine Bacteria Many per hpf (None-Few) H 10/08/16 04:15 Hyaline Casts None Seen per lpf (None-Few) 10/08/16 04:15 Ur Culture Indicated? NO (NO) 10/08/16 04:15 Fluid Source CSF 10/08/16 04:42 Fluid Volume 4 mL 10/08/16 04:42 Fluid Appearance Clear (Clear) 10/08/16 04:42 Fluid RBC < 0.002 M/mcL (No Ref Range) 10/08/16 04:42 Fld Tot Nucleated Cell 5 TNC/mcL (No Ref Range) 10/08/16 04:42 Fluid Seg Neutrophil % TNP 10/08/16 04:42 Fld Band Neutrophil % TNP 10/08/16 04:42 Fluid Lymphocytes % TNP 10/08/16 04:42 Fluid Monocytes % TNP 10/08/16 04:42 Fluid Eosinophils % TNP 10/08/16 04:42 Fluid Basophils % TNP 10/08/16 04:42 Fluid Other Cells % TNP 10/08/16 04:42 CSF Volume TNP 10/08/16 04:42 CSF Appearance TNP 10/08/16 04:42 CSF Color TNP 10/08/16 04:42 CSF RBC TNP 10/08/16 04:42 CSF Tot Nucleated Cells TNP 10/08/16 04:42 CSF Seg Neutrophils TNP 10/08/16 04:42 CSF Band Neutrophils % TNP 10/08/16 04:42 CSF Lymphocytes % TNP 10/08/16 04:42 CSF Monocytes % TNP 10/08/16 04:42 CSF Eosinophils % TNP 10/08/16 04:42 CSF Basophils % TNP 10/08/16 04:42 CSF Other Cells % TNP 10/08/16 04:42 CSF Glucose 166 mg/dL (40-70) H 10/08/16 04:42 CSF Xanth Comm Not Observed (Not Observe) 10/08/16 04:42 CSF Total Protein 57 mg/dL (15-45) H 10/08/16 04:42 Urine Opiates Screen Negative ng/mL (Leodog=287) 10/08/16 04:15 Ur Barbiturates Screen Negative ng/mL (Jckxfa=095) 10/08/16 04:15 Ur Phencyclidine Scrn Negative ng/mL (Cutoff=25) 10/08/16 04:15 Ur Amphetamines Screen Negative ng/mL (Gljoog=7001) 10/08/16 04:15 U Benzodiazepines Scrn Negative ng/mL (Pfbqva=044) 10/08/16 04:15 Urine Cocaine Screen Negative ng/mL (Cutoff= 300) 10/08/16 04:15 U Marijuana (THC) Screen Negative ng/mL (Cutoff = 50) 10/08/16 04:15 Impressions Chest X-Ray 10/08/16 02:28 IMPRESSION: Expiratory chest with no evidence of acute cardiopulmonary disease. D/ / 10/08/2016 06:04:20 Goyo Valderrama MD / [email or web address] Interpreting Provider: Goyo Valderrama MD Head CT 10/08/16 02:28 IMPRESSION: No evidence of acute intracranial abnormality. D/ / 10/08/2016 06:04:49 Goyo Valderrama MD / [email or web address] Interpreting Provider: Goyo Valderrama MD Brain MRI 10/08/16 08:49 IMPRESSION: Unremarkable noncontrast MRI of the brain. D/ / Robby Lugo MD / Robby Lugo MD Interpreting Provider: Robby Lugo MD Consult Discharge Plan - Plan Referrals: Yasmin Sal MD [Primary Care Provider] -
[2016-10-08] MEDS: Acyclovir 750 MG in D5% in Water 250 ML IVPB SCH ×2 (12:59→22:14)
[2016-10-08] MEDS: Insulin LISPRO 300 UNITS/3 ML VIAL SQ SCH ×3 (12:59→20:42)
[2016-10-08] MEDS: *HR* OxyCODONE/APAP 7.5/325 TABLET PO PRN (16:05)
[2016-10-08] MEDS: *HR* Heparin 5,000 UNIT/ML VIAL SQ SCH (17:09)
[2016-10-08 17:41] LABS: C-Reactive Protein 132 mg/L (Less than 5); Creatine Kinase 42 Units/L (29-168)
[2016-10-08] MEDS ORDERED: Acetaminophen 325 MG TABLET PO ONE (18:28)
[2016-10-08] MEDS: 0.9 % Sodium Chloride 1,000 ML IVC SCH (18:36)
[2016-10-08] MEDS: Acetaminophen 325 MG TABLET PO PRN (23:43)
[2016-10-09 02:00] LABS: Basophils % 0.4 %; Hematocrit 39.5 % (35.3-44.9); Lymphocytes # 1.1 K/mcL (0.6-4.6); Lymphocytes % 14.6 %; Mean Corpuscular HGB Conc 32.9 g/dL (31.6-35.5); Mean Corpuscular Hemoglobin 29.3 pg (28.0-33.3); Mean Corpuscular Volume 89.2 fL (83.0-100.0); Mean Platelet Volume 8.9 fL (9.4-12.4); Monocytes # 0.6 K/mcL (0.0-1.3); Monocytes % 7.6 %; Neutrophils # 5.9 K/mcL (1.6-8.9); Platelet Count 227 K/mcL (140-400); Red Blood Count 4.43 M/mcL (3.82-4.97); Red Cell Distribution Width 13.4 % (11.5-14.5); Segmented Neutrophils % 76.4 %
[2016-10-09 02:16] LABS: BUN/Creatinine Ratio 8 (6-26); Blood Urea Nitrogen 6 mg/dL (7-20); Carbon Dioxide 22 mEq/L (19-29); Chloride 100 mEq/L (98-109); Glucose 223 mg/dL (70-99); Magnesium 1.1 mg/dL (1.6-2.6); Osmolality,Calculated 277 (280-300); Phosphorous 1.7 mg/dL (2.3-4.7); Potassium 3.8 mEq/L (3.5-4.5); Sodium 131 mEq/L (136-145); eGFR For African Americans > 60 (> 60); eGFR For Non-African Americans > 60 (> 60)
[2016-10-09 02:21] LABS: Calcium 8.4 mg/dL (8.6-10.8)
[2016-10-09] MEDS: *HR* OxyCODONE/APAP 7.5/325 TABLET PO PRN ×3 (04:11→21:54)
[2016-10-09] MEDS: Acyclovir 750 MG in D5% in Water 250 ML IVPB SCH ×3 (06:02→22:04)
[2016-10-09] MEDS: *HR* Heparin 5,000 UNIT/ML VIAL SQ SCH ×2 (06:07→16:48)
[2016-10-09] MEDS: Insulin LISPRO 300 UNITS/3 ML VIAL SQ SCH ×4 (08:37→21:44)
[2016-10-09] MEDS: 0.9 % Sodium Chloride 1,000 ML IVC SCH (09:54)
--- NOTE | 2016-10-09 09:54 | Neurology Progress Note ---
Date of Encounter: 10/09/16 Time of Encounter: 09:50 Assessment and Plan (1) Altered mental status Current Visit: Yes Status: Acute 50-year old woman with sudden-onset fever, AMS, now responding to acyclovir/abx , benign CSF, with possible HSV encephalitis or other viral encephalitis. Suspect PLAYGROUND OFFICIAL infection (viral syndrome) with AMS - will need to expand evaluation for fungus or atypical infection, if fevers continue on a daily basis. EEG in the morning for completeness. If seizure, will need to be loaded with fosphenytoin. Call if questions. Qualifiers: Altered mental status type: disorientation Qualified Code(s): R41.0 - Disorientation, unspecified Subjective Principal diagnosis: AMS, likely PLAYGROUND OFFICIAL infection Interval history: Patient is seen in follow-up. States that she is doing well, and better than yesterday. She states that her rash is better. She did have a fever spike yesterday tmax at 102.8 at close to midnight. During the high temperature, she was able to concentrate very well, according to nursing. She was given tylenol. She is continued on acyclovir. Her ESR was 34, and CRP was 137. Overall her thinking is better, she says. She went to the bathroom by herself today. She wants to take a shower today. Objective - Constitutional Vitals: Temp Pulse Resp BP Pulse Ox 98.1 F 110 18 92/58 95 10/09/16 07:32 10/09/16 07:32 10/09/16 07:32 10/09/16 07:32 10/09/16 07:32 Vital Signs - 24 hr 10/08/16 15:09 10/08/16 18:22 10/08/16 21:39 Temperature 100.5 F H 102.0 F H 101.0 F H Pulse Rate 120 125 125 Respiratory Rate 15 20 18 Blood Pressure 141/83 101/63 136/78 O2 Sat by Pulse Oximetry 96 95 10/08/16 23:55 10/09/16 01:04 10/09/16 04:16 Temperature 102.8 F H 100.9 F H 99.9 F H Pulse Rate 120 123 116 Respiratory Rate 17 20 Blood Pressure 153/74 148/82 139/76 O2 Sat by Pulse Oximetry 95 93 10/09/16 07:29 10/09/16 07:32 Temperature 98.1 F Pulse Rate 110 Respiratory Rate 18 Blood Pressure 89/57 92/58 O2 Sat by Pulse Oximetry 95 General appearance: Present: cooperative, A&O X 3, no acute distress, answers questions appropriately - Neurological Exam Sensorimotor examination: Present: intact Motor Examination: Present: other (generalized weakness) Sensation intact: Present: intact Reflexes: Biceps: 1+, Triceps: 1+, Brachioradialis: 1+, Patella: 1+, Achilles: 1 + Mental Status Examination: Present: awake (normal mentation, calculation is a little bit faster than yesterday.), alert, oriented to person, oriented to place , oriented to time, follows commands appropriately, answers questions appropriately, no agnosia, no aphasia, no aproxia Cranial nerve examination: Present: PERRL, EOMI, visual bergman intact, corneal reflexes brisk symmetrically, sensory to face intact, mastication intact, no facial asymmetry is present, no dysarthria, hearing is intact symmetrically, soft palate elevates bilaterally upon phonation, gag reflex intact, flexes SCM and trapezius muscles symmetrically with full power, tongue protrudes midline, no atrophy or facial fasiculations present Cerebellar examination: Present: no dysmetria, performs finger to nose and heel to carrington symmetrically without ataxia, no gait ataxia, no truncal ataxia, no difficulty with rapid alternating movements Results - Laboratory Findings CBC and BMP: 10/09/16 01:16 10/09/16 01:16 Abnormal lab findings: Abnormal lab results MPV 8.9 fL (9.4-12.4) L 10/09/16 01:16 ESR 34 mm/hr (0-15) H 10/08/16 13:50 PT 13.0 Seconds (9.4-12.1) H 10/08/16 02:40 Sodium 131 mEq/L (136-145) L 10/09/16 01:16 BUN 6 mg/dL (7-20) L 10/09/16 01:16 Glucose 223 mg/dL (70-99) H 10/09/16 01:16 POC Glucose 205 (58-89) H 10/08/16 20:11 Calculated Osmolality 277 (280-300) L 10/09/16 01:16 Lactic Acid 2.3 mmol/L (0.5-2.2) H 10/08/16 05:17 Calcium 8.4 mg/dL (8.6-10.8) L D 10/09/16 01:16 Phosphorus 1.7 mg/dL (2.3-4.7) L 10/09/16 01:16 Magnesium 1.1 mg/dL (1.6-2.6) L 10/09/16 01:16 AST 40 Units/L (5-34) H 10/08/16 02:40 C-Reactive Protein 132 mg/L (Less than 5) H 10/08/16 17:18 Globulin 4.4 g/dL (2.4-3.5) H 10/08/16 02:40 Albumin/Globulin Ratio 0.8 (1.1-2.2) L 10/08/16 02:40 Urine Clarity Hazy (Clear) A 10/08/16 04:15 Ur Specific [place] > 1.030 (1.010-1.025) H 10/08/16 04:15 Urine Glucose (UA) >=1000 mg/dL (Normal) H 10/08/16 04:15 Urine Ketones Trace mg/dL (Negative) H 10/08/16 04:15 Ur Squamous Epith Cells Many per lpf (None-Few) H 10/08/16 04:15 Urine Bacteria Many per hpf (None-Few) H 10/08/16 04:15 CSF Glucose 166 mg/dL (40-70) H 10/08/16 04:42 CSF Total Protein 57 mg/dL (15-45) H 10/08/16 04:42 Consult Discharge Plan - Plan Referrals: Yasmin Sal MD [Primary Care Provider] -
--- NOTE | 2016-10-09 11:15 | Internal Med Progress Note ---
Date of Encounter: 10/09/16 Time of Encounter: 08:50 - Assessment and plan (1) Encephalitis Current Visit: Yes Status: Suspected Assessment and plan: Patient with suspected viral encephalitis being treated with acyclovir intravenously. Mental status is improving but patient continues to have fevers. Neurology following. No leukocytosis but patient does have elevated ESR and CRP. HSV, RPR and blood cultures are currently pending. We will consult infectious disease. Follow their recommendations. If fever persists, we will broaden coverage. (2) Altered mental status Current Visit: Yes Status: Acute Assessment and plan: Improving. Possibly from viral encephalitis. Qualifiers: Altered mental status type: disorientation Qualified Code(s): R41.0 - Disorientation, unspecified (3) Elevated lactic acid level Current Visit: Yes Status: Acute Assessment and plan: We will recheck lactic acid level. Continue IV hydration. (4) Diabetes Current Visit: Yes Status: Chronic Assessment and plan: Blood sugars remain elevated. We will increase insulin coverage. Monitor sugars and continue diabetic diet. Qualifiers: Diabetes mellitus type: type 2 Diabetes mellitus complication status: with hyperglycemia Diabetes mellitus terminal operator insulin use: without terminal operator use Qualified Code(s): E11.65 - Type 2 diabetes mellitus with hyperglycemia - Subjective Interval history: Patient is awake and alert. Feels like she is back to baseline. She has been having fever through the night with MAXIMUM TEMPERATURE of 102.8. Denies any focal weakness or numbness. Has not had any seizure-like activity. - Constitutional Vitals: Temp Pulse Resp BP Pulse Ox 98.1 F 110 18 92/58 95 10/09/16 07:32 10/09/16 07:32 10/09/16 07:32 10/09/16 07:32 10/09/16 07:32 General appearance: Present: cooperative, mild distress, A&O X 3, answers questions appropriately - Neck Neck exam general surgery: Present: supple, trachea midline. Absent: lymphadenopathy, nuchal rigidity - Respiratory Respiratory exam: Present: CTAB. Absent: accessory muscle use, rales, rhonchi, wheezes - Cardiovascular Cardiovascular exam: Present: RRR, +S1, +S2. Absent: diastolic murmur, gallop, rubs, systolic murmur - GI/Abdominal GI/Abdominal exam: Present: normal bowel sounds, soft, no peritoneal signs. Absent: distended, tenderness - Extremities Exam Extremities exam: Present: warm, radial pulses palpable and symmetrical. Absent : calf tenderness, cyanotic, pedal edema - Neurological Exam Neurological exam: Present: alert, oriented X3, no focal deficits, strengths equal and symetr throughout. Absent: facial droop, speech deficit Internal Medicine: Result - Labs CBC & Chem 7: 10/09/16 01:16 10/09/16 01:16 Labs: Short CBC 10/09/16 Range/Units 01:16 WBC 7.7 (4.3-11.1) K/mcL Hgb 13.0 (11.5-15.4) g/dL Hct 39.5 (35.3-44.9) % Plt Count 227 (140-400) K/mcL Neutrophils # 5.9 (1.6-8.9) K/mcL BMP 10/09/16 01:16 Sodium 131 L Potassium 3.8 Chloride 100 Carbon Dioxide 22 BUN 6 L Creatinine 0.72 Glucose 223 H Calcium 8.4 L D - ABG Interpretation ABG results: PT/INR, D-dimer PT 13.0 Seconds (9.4-12.1) H 10/08/16 02:40 Consult Discharge Plan - Plan Referrals: Yasmin Sal MD [Primary Care Provider] -
[2016-10-09] MEDS ORDERED: 0.9 % Sodium Chloride 1,000 ML IVC ONE (11:16)
[2016-10-09] MEDS: Insulin DETEMIR 100 UNIT/ML X5UNITS SQ SCH (12:54)
--- NOTE | 2016-10-09 12:59 | Electrocardiograph Report ---
[address] [place], [place] [address] Test Date: 2016-10-08 Pat Name: Ciara Wood Department: 0 Room: [facility] Gender: F [employer] T[employer]er: : 1965 Requested By: Singh Aparicio Order Number: [id number] Reading MD: Celine Mullins Measurements Intervals [place] Rate: 125 P: 61 MO: 172 QRS: -58 QRSD: 116 T: 78 QT: 292 QTc: 366 Interpretive Statements SINUS TACHYCARDIA LEFT ANTERIOR FASCICULAR BLOCK NONSPECIFIC ST-T ABNORMALITIES SEPTAL AND LATERAL LEADS Electronically Signed On 10-09-2016 12:57:45 EDT by Celine Mullins
[2016-10-09] MEDS: Acetaminophen 325 MG TABLET PO PRN (16:52)
[2016-10-09] MEDS ORDERED: Magnesium Sulfate 4 GM in D5% in Water 100 ML IVPB ONE (17:09)
--- NOTE | 2016-10-09 17:44 | Electrocardiograph Report ---
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
[2016-10-09] MEDS: Magnesium Sulfate 2 GM in D5% in Water 100 ML IVPB SCH ×2 (18:19→21:42)
[2016-10-10 03:30] LABS: BUN/Creatinine Ratio 8 (6-26); Calcium 8.2 mg/dL (8.6-10.8); Carbon Dioxide 18 mEq/L (19-29); Chloride 105 mEq/L (98-109); Glucose 198 mg/dL (70-99); Osmolality,Calculated 281 (280-300); Potassium 3.7 mEq/L (3.5-4.5); Sodium 134 mEq/L (136-145); eGFR For African Americans > 60 (> 60); eGFR For Non-African Americans > 60 (> 60)
[2016-10-10 03:35] LABS: Blood Urea Nitrogen 5 mg/dL (7-20)
[2016-10-10] MEDS: *HR* OxyCODONE/APAP 7.5/325 TABLET PO PRN ×3 (04:28→22:08)
[2016-10-10] MEDS: 0.9 % Sodium Chloride 1,000 ML IVC SCH ×3 (04:58→12:21)
[2016-10-10 05:33] LABS: Basophils % 0.5 %; Eosinophils # 0.1 K/mcL (0.0-0.6); Eosinophils % 1.2 %; Hematocrit 36.6 % (35.3-44.9); Hemoglobin 12.1 g/dL (11.5-15.4); Immature Granulocytes % 0.9 % (0-4); Lymphocytes # 2.2 K/mcL (0.6-4.6); Lymphocytes % 28.8 %; Mean Corpuscular HGB Conc 33.1 g/dL (31.6-35.5); Mean Corpuscular Volume 87.8 fL (83.0-100.0); Mean Platelet Volume 9.9 fL (9.4-12.4); Monocytes # 0.9 K/mcL (0.0-1.3); Monocytes % 11.4 %; Neutrophils # 4.4 K/mcL (1.6-8.9); Nucleated Red Blood Cells 0.3 /100 WBC (0); Platelet Count 197 K/mcL (140-400); Red Blood Count 4.17 M/mcL (3.82-4.97); Red Cell Distribution Width 13.6 % (11.5-14.5); Segmented Neutrophils % 57.2 %
[2016-10-10] MEDS: Acyclovir 750 MG in D5% in Water 250 ML IVPB SCH ×3 (05:48→22:18)
[2016-10-10] MEDS: *HR* Heparin 5,000 UNIT/ML VIAL SQ SCH ×2 (05:48→17:18)
[2016-10-10] MEDS: Insulin LISPRO 300 UNITS/3 ML VIAL SQ SCH ×4 (08:59→22:10)
[2016-10-10] MEDS: Insulin DETEMIR 100 UNIT/ML X5UNITS SQ SCH (08:59)
[2016-10-10] MEDS: Acetaminophen 325 MG TABLET PO PRN (09:04)
--- NOTE | 2016-10-10 09:06 | Infectious Disease Consult ---
Date of Encounter: 10/10/16 Time of Encounter: 08:39 Assessment and Plan (1) Encephalitis Status: Suspected Assessment and plan: Resolved. It's etiology not clear, possible viral versus vasculitis versus other CT brain and MRI brain revealed no evidence of acute intracranial abnormality. EEG negative Neurology following Patient was initially given Rocephin and Vancomycin on 10/08/16. She has continued Zovirax since 10/08/16 Lumbar puncture revealed clear CSF, glucose 166, total protein 57, and CSF culture shows no growth to date. Recommendations: Agree with HSV, and VZV PCR Check HIV status Check urine cryptococcal antigen Continue acyclovir 10 mg per KG every 8 hours for now Aggressive hydration. Duration of treatment depends on clinical course (2) SIRS (systemic inflammatory response syndrome) Status: Acute Assessment and plan: On admission she met two SIRS criteria of Temp 102.9 F and Tachycardia 127. Labs on admission revealed WBC within normal limits, lactic acid 2.9, ESR 34, CRP 132, glucose 392, Magnesium 1.5, Rheumatoid factor < 15, UDS negative, and urinalysis with multiple epithelial cells. HSV, RPR, GC tests are pending Blood Cultures x2 collected 10/08/16 show no growth to date. (3) Elevated lactic acid level Status: Resolved (4) CARLITO positive Status: Acute Assessment and plan: rash on her anterior chest and arms. Of note she had a positive CARLITO screen on 08/03/16 and has a Rheumatology appointment scheduled for Oct 24, 2016. (5) Diabetes Status: Chronic Assessment and plan: Continue management per primary team. Qualifiers: Diabetes mellitus type: type 2 Diabetes mellitus complication status: with hyperglycemia Diabetes mellitus long term care social worker insulin use: without long term care social worker use Qualified Code(s): E11.65 - Type 2 diabetes mellitus with hyperglycemia Infectious Disease HPI - Data of Consult Consult date: 10/09/16 Requesting Physician: Manjit Byrd MD Primary Care Provider: Yasmin Sal MD - Consult Narrative Reason for consult: Possible encephalitis History of present illness: Ms. Wood is a 50 year old female that was admitted on 10/08/16 for altered mental status Infectious disease is consulted on 10/09/13 for possible encephalitis. Ms. Wood is a 50 year old female with a PMH significant for HTN, DM, fibromyalgia, and possible SLE that presented to the hospital on 10/08/16 after family noticed that she fell x2 on 10/07/16, had fever of 102 F, was disoriented to time and place, and reported headache, neck stiffness, generalized weakness and confusion. She reports she has been feeling weak for the past 2 weeks, has had multiple syncopal events in the past, and has a rash on her anterior chest and arms. Of note she had a positive CARLITO screen on 08/03/16 and has a Rheumatology appointment scheduled for Oct 24, 2016. The patient denies fever since yesterday and reports a chronic yeast infection - 2 years. She has not seen a Database Analyst doctor in the last 3 years. She denies cold sores or sores on her genitals. She works as a quality internship, denies recent travel or exposure to sick or unvaccinated children, and has 4 dogs a home. On admission she met two SIRS criteria of Temp 102.9 F and Tachycardia 127. Labs on admission revealed WBC within normal limits, lactic acid 2.9, ESR 34, CRP 132, glucose 392, Magnesium 1.5, Rheumatoid factor < 15, UDS negative, and urinalysis with multiple epithelial cells. HSV, RPR, GC tests are pending CT brain and MRI brain revealed no evidence of acute intracranial abnormality. CXR was unremarkable. Blood Cultures x2 collected 10/08/16 show no growth to date. Patient was initially given Rocephin and Vancomycin on 10/08/16. She has continued Zovirax since 10/08/16 Lumbar puncture revealed clear CSF, glucose 166, total protein 57, and CSF culture shows no growth to date. Other consultants include neurology. CC: Manjit Byrd MD Past Med Surg Social Fam HX - Past Medical History Medical history: asthma, coronary artery disease, diabetes, fibromyalgia, hyperlipidemia, hypertension Psychiatric history: anxiety, depression - Social History Smoking Status: Never smoker Smokeless Tobacco Status: No Alcohol use: none Drug use: none Infectious Disease-CN:Meds Hydrocodone/Acetaminophen [[place] 5-325 Tablet] 1 tab PO TID PRN #10 tab [Rx] Amitriptyline HCl 100 mg PO HS 10/08/16 [History] Aspirin [Lo-Dose Aspirin EC] 81 mg PO DAILY 10/08/16 [History] Gabapentin [Neurontin] 800 mg PO TID 10/08/16 [History] Glimepiride [Amaryl] 1 mg PO DAILY 10/08/16 [History] Lisinopril [Zestril] 20 mg PO DAILY 10/08/16 [History] Metformin HCl [Glucophage] 1,000 mg PO QAM 10/08/16 [History] Pioglitazone [Actos] 15 mg PO DAILY 10/08/16 [History] Allergies No Known Allergies Allergy (Verified 10/08/16 02:06) Review of systems: Travel: denies recent travel Animal exposure: Has 4 dogs at home Sick contacts: Denies. Denies exposure to sick children. Diet: denies ingestion of undercooked or raw meats. Dental: denies recent dental procedures - Constitutional Constitutional: Present: daytime sleepiness, fatigue, fever(s) (Resolved), lethargy, weakness. Absent: night sweats, weight gain, weight loss - EENT Eyes: Present: blind spots (Intermittent Black spots), blurry vision. Absent: change in vision, tunnel vision Ears: Absent: decreased hearing Nose, mouth and throat: Absent: dysphagia, nasal congestion, sinus pressure, sore throat - Cardiovascular Cardiovascular: Absent: chest pain, diaphoresis, lightheadedness, palpitations, pedal edema, rapid heart rate - Respiratory Respiratory: Absent: cough, wheezing, chest congestion - Gastrointestinal Gastrointestinal: Absent: abdominal pain, constipation, diarrhea, nausea, vomiting - Genitourinary Genitourinary: Absent: dysuria, flank pain, urinary frequency, urinary urgency - Musculoskeletal Musculoskeletal: Present: limited range of motion, stiffness (Neck) - Integumentary Integumentary: Present: erythema, rash. Absent: change in hair, change in nails , wounds - Neurological Neurological: Absent: abnormal speech, confusion, lack of coordination, loss of vision, paresthesias, sensory deficit, tingling, weakness - Psychiatric Psychiatric: Absent: anxiety - Endocrine Endocrine: Absent: polydipsia, polyphagia, polyuria - Hematologic/Lymphatic Hematologic/Lymphatic: Absent: lymphadenopathy Exam - Constitutional Vitals: Temp Pulse Resp BP Pulse Ox 97.4 F L 97 18 103/67 97 10/10/16 06:45 10/10/16 06:45 10/10/16 06:45 10/10/16 06:45 10/10/16 06:45 General appearance: cooperative, no acute distress, obese, no febrile - Head Head exam: Present: atraumatic, normal inspection, normocephalic - Eye Eye exam: Present: PERRL, conjuntiva pink - ENT ENT exam: Present: mucous membranes moist, normal oropharynx Additional comments: Poor dentition - Neck Neck exam: Present: normal inspection. Absent: lymphadenopathy, meningismus, tenderness, thyromegaly - Respiratory Respiratory exam: Present: CTAB. Absent: decreased breath sounds, rhonchi, wheezes - Cardiovascular Cardiovascular exam: Present: RRR, +S1, +S2 - GI/Abdominal GI/Abdominal exam: Present: normal bowel sounds, soft. Absent: distended, guarding, rebound - Extremities Exam Extremities exam: Present: full ROM, normal inspection. Absent: pedal edema, tenderness - Neurological Exam Neurological exam: Present: alert, CN II-XII intact, oriented X3. Absent: altered, motor sensory deficit - Expanded Neurological Exam Upper motor neuron: Babinski sign: Normal - Psychiatric Psychiatric exam: Present: normal affect, normal mood - Skin Skin exam: Present: dry, erythema, intact, rash (Mild blanching erythema over anterior chest and forearms), warm Infectious Disease CN: Results - Labs CBC & Chem 7: 10/10/16 01:38 10/10/16 01:38 Cultures: Microbiology 10/08/16 04:42 Cerebral Spinal Fluid Gram Stain - Final 10/08/16 04:42 Cerebral Spinal Fluid CSF Culture - Preliminary No growth. 10/08/16 04:15 Peripheral Venipuncture Blood Culture - Preliminary No growth. 10/08/16 03:18 Peripheral Venipuncture Blood Culture - Preliminary No growth. Consult Discharge Plan - Plan Referrals: Yasmin Sal MD [Primary Care Provider] - - Attending Attestation I examined this patient and my medical decision-making was reviewed with the Resident Physician. I agree with the documented findings, disposition and treatment plan as described except to the extent set forth below. Patient is a 50 year old female admitted to [facility] on 10/08 for fever and altered mental status, we are consulted today for fever and concern or encephalitis. Patient is a 50 year old woman with past medical history including diabetes, obesity, fibromyalgia and concern for autoimmune disease with positive CARLITO was brought in by family with altered mental status and confusion that was sudden onset started on the day of admission. Patient apparently was complaining of headache and stiff neck. Patient was also found to have fevers as per family. Apparently patient family denies recent sick contacts, recent URI symptoms or any similar symptoms in the past. Since Admission, patient was found to be febrile of 102F, tachycardia, WBC of 9.9 with 86% neutrophils and lactic acidosis and blood sugar of 392. An LP was done which revealed no pleocytosis, mildly elevated blood sugar but less than 2/ 3 ratio. Protein was also slightly elevated at 57. Gram stain was negative , syphilis Abx negative. A urine drug screen was negative and a urinalysis was not impressvie. Blood cultures are no growth to date. Imaging of the brain (Ct and MRI both showed no acute process). A CXR without acute process. EEG was done and was non revealing. Patient was started on rocephin initlaly then it was d/damián , currently patient is on acyclovir. We are asked to evaluate the patient and make further ecommendations. At this point Im not sure what caused her AMS. Viral encephalitis vs vascular vs other? Denies any recent URI No tick bites Agree with empiric acyclovir while HSV pcr is back even though my index of suspicion is low I also would check vzv pcr, cryptococcal antigen and HIV in the blood As for the vaiganl yeast infection, start diflucan
[2016-10-10 12:37] LABS: HSV Source CSF
--- NOTE | 2016-10-10 14:32 | EEG/EMG/Oth Biometrics Report ---
EEG Procedure Report Date of procedure: 10/10/16 EEG Procedure: Routine EEG Procedure Note: This is a report of a 21 channel bipolar and referential montage EEG. The posterior dominant resting rhythm consists primarily of mixed theta and alpha frequencies. This rhythm is not reactive to eye opening. Hyperventilation is performed and does not significantly alter the recording. Periods of drowsiness and stage II sleep are identified as reference by dropout of the posterior dominant rhythm, and the emergence of vertex activity, K complexes and sleep spindles. Photic stimulation is performed and does not produce a driving response. The EKG rhythm strip reveals normal sinus rhythm at 96 beats per minute. Impressions: This EEG recording is reflective of her normal state of drowsiness. There is no evidence of epileptiform activity identified during the study. Comment: A normal EEG does not preclude the diagnosis of seizure or epilepsy. If the clinical suspicion for seizure activity is high, serial EEGs or perhaps a prolonged recording may increase the yield. Please correlate clinically.
--- NOTE | 2016-10-10 14:43 | Electrocardiograph Report ---
[place] [id number] Test Date: 2016-10-09 Pat Name: Ciara Wood Department: 114 Room: 3A35 Gender: F Insole Taper: : 1965 Requested By: Manjit Byrd Order Number: [id number] Reading MD: Enrique Lorenzo MD Measurements Intervals [place] Rate: 106 P: 60 AK: 195 QRS: -53 QRSD: 117 T: 81 QT: 321 QTc: 383 Interpretive Statements SINUS TACHYCARDIA LEFT ANTERIOR FASCICULAR BLOCK Poor R wave progression Electronically Signed On 10-10-2016 14:41:29 EDT by Enrique Lorenzo MD
--- NOTE | 2016-10-10 17:31 | Internal Med Progress Note ---
Date of Encounter: 10/10/16 Time of Encounter: 15:30 - Assessment and plan (1) Encephalitis Current Visit: Yes Status: Suspected Assessment and plan: Clinically improving. Infectious disease has been consulted. We will follow the recommendations. Continue IV acyclovir for now. HSV PCR and Additional blood tests are currently pending. Moderate risk for complications. (2) Altered mental status Current Visit: Yes Status: Resolved Assessment and plan: This has now resolved. EEG does not show any epileptiform activity. Qualifiers: Altered mental status type: disorientation Qualified Code(s): R41.0 - Disorientation, unspecified (3) Elevated lactic acid level Current Visit: Yes Status: Resolved (4) Diabetes Current Visit: Yes Status: Chronic Assessment and plan: Blood sugars are improving but still elevated. We will increase long-acting insulin coverage. Qualifiers: Diabetes mellitus type: type 2 Diabetes mellitus complication status: with hyperglycemia Diabetes mellitus snf insulin use: without local intermodal truck driver use Qualified Code(s): E11.65 - Type 2 diabetes mellitus with hyperglycemia - Subjective Interval history: Patient complains of headache. Denies any dizziness or lightheadedness. No fever or chills reported. Mental status remains at baseline. No other new complaints at this time. - Constitutional Vitals: Temp Pulse Resp BP Pulse Ox 97.9 F 89 18 125/74 96 10/10/16 16:01 10/10/16 16:01 10/10/16 16:01 10/10/16 16:01 10/10/16 16:01 General appearance: Present: cooperative, mild distress, A&O X 3, answers questions appropriately - Neck Neck exam general surgery: Present: supple, trachea midline. Absent: lymphadenopathy - Respiratory Respiratory exam: Present: CTAB. Absent: accessory muscle use, rales, rhonchi, wheezes - Cardiovascular Cardiovascular exam: Present: RRR, +S1, +S2. Absent: diastolic murmur, gallop, rubs, systolic murmur - GI/Abdominal GI/Abdominal exam: Present: normal bowel sounds, soft, no peritoneal signs. Absent: distended, tenderness - Extremities Exam Extremities exam: Present: warm, radial pulses palpable and symmetrical. Absent : calf tenderness, cyanotic, pedal edema - Skin Skin exam: Present: dry, intact Internal Medicine: Result - Labs CBC & Chem 7: 10/10/16 01:38 10/10/16 01:38 Labs: Short CBC 10/10/16 Range/Units 01:38 WBC 7.6 (4.3-11.1) K/mcL Hgb 12.1 (11.5-15.4) g/dL Hct 36.6 (35.3-44.9) % Plt Count 197 (140-400) K/mcL Neutrophils # 4.4 (1.6-8.9) K/mcL BMP 10/10/16 01:38 Sodium 134 L Potassium 3.7 Chloride 105 Carbon Dioxide 18 L BUN 5 L Creatinine 0.64 Glucose 198 H Calcium 8.2 L - ABG Interpretation ABG results: PT/INR, D-dimer PT 13.0 Seconds (9.4-12.1) H 10/08/16 02:40 Consult Discharge Plan - Plan Referrals: Yasmin Sal MD [Primary Care Provider] -
--- NOTE | 2016-10-10 18:38 | Neurology Progress Note ---
Date of Encounter: 10/10/16 Time of Encounter: 18:34 Assessment and Plan (1) Transient confusion Current Visit: Yes Status: Acute Unfortunately we may not be able to identify the specific etiology resulting in this acute syndrome. However she seems to be resolving. I feel that the likelihood of a central nervous system encephalitis is low. I clinically would not expect it to resolve as quickly, and cerebral spinal fluid profile was not exactly fitting. I would like to check an MRA scan of the brain just to rule out evidence of vasculitis. I would also like to check JULI level. Ultimately if she gets discharged tomorrow we should likely maintain the acyclovir orally until the PCR ultimately comes back. Subjective Principal diagnosis: Transient confusion Interval history: The chart was reviewed, patient was seen and examined. I discussed the case with the infectious diseases and internal medicine experts. I would tend to agree based on the results of the cerebrospinal fluid likelihood of a central nervous system encephalitis is probably low. She is currently awake alert and oriented and back to her baseline status. She did have some headache along with the transient flulike symptoms initially. However this has resolved. Her neurologic examination and neuroimaging were normal. EEG was normal without any evidence of seizure activity. My suspicion is that she may have had a systemic virus that has now run its course. She does have a positive CARLITO titer , however continuing with central nervous system vasculitis her cognition would still be impaired. Objective - Constitutional Vitals: Temp Pulse Resp BP Pulse Ox 97.9 F 89 18 125/74 96 10/10/16 16:01 10/10/16 16:01 10/10/16 16:01 10/10/16 16:01 10/10/16 16:01 General appearance: Present: cooperative, A&O X 3, no acute distress, answers questions appropriately - Neurological Exam Sensorimotor examination: Present: intact Motor Examination: Present: other Motor examination - right side: 5/5: deltoids, biceps, triceps, talend etl developer, hip flexors, tibialis Anterior, quadriceps, toe extension (EHL), plantarflexion Motor examination - left side: 5/5: deltoids, biceps, triceps, hip flexors, talend etl developer , quadriceps, tibialis Anterior, toe extension (EHL), plantarflexion Sensation intact: Present: intact Reflexes: Biceps: 2+, Triceps: 2+, Brachioradialis: 2+, Patella: 2+, Achilles: 2 + Mental Status Examination: Present: awake (normal mentation, calculation is a little bit faster than yesterday.), alert, oriented to person, oriented to place , oriented to time, follows commands appropriately, answers questions appropriately, no agnosia, no aphasia, no aproxia Cranial nerve examination: Present: PERRL, EOMI, visual bergman intact, corneal reflexes brisk symmetrically, sensory to face intact, mastication intact, no facial asymmetry is present, no dysarthria, hearing is intact symmetrically, soft palate elevates bilaterally upon phonation, gag reflex intact, flexes SCM and trapezius muscles symmetrically with full power, tongue protrudes midline, no atrophy or facial fasiculations present Cerebellar examination: Present: no dysmetria, performs finger to nose and heel to car[place] symmetrically without ataxia, no gait ataxia, no truncal ataxia, no difficulty with rapid alternating movements Results - Laboratory Findings CBC and BMP: 10/10/16 01:38 10/10/16 01:38 Abnormal lab findings: Abnormal lab results Nucleated RBCs/100 WBC 0.3 /100 WBC (0) H 10/10/16 01:38 ESR 34 mm/hr (0-15) H 10/08/16 13:50 PT 13.0 Seconds (9.4-12.1) H 10/08/16 02:40 Sodium 134 mEq/L (136-145) L 10/10/16 01:38 Carbon Dioxide 18 mEq/L (19-29) L 10/10/16 01:38 BUN 5 mg/dL (7-20) L 10/10/16 01:38 Glucose 198 mg/dL (70-99) H 10/10/16 01:38 POC Glucose 198 (58-89) H 10/10/16 16:13 Calcium 8.2 mg/dL (8.6-10.8) L 10/10/16 01:38 Phosphorus 1.7 mg/dL (2.3-4.7) L 10/09/16 01:16 Magnesium 1.1 mg/dL (1.6-2.6) L 10/09/16 01:16 AST 40 Units/L (5-34) H 10/08/16 02:40 C-Reactive Protein 132 mg/L (Less than 5) H 10/08/16 17:18 Globulin 4.4 g/dL (2.4-3.5) H 10/08/16 02:40 Albumin/Globulin Ratio 0.8 (1.1-2.2) L 10/08/16 02:40 Urine Clarity Hazy (Clear) A 10/08/16 04:15 Ur Specific [place] > 1.030 (1.010-1.025) H 10/08/16 04:15 Urine Glucose (UA) >=1000 mg/dL (Normal) H 10/08/16 04:15 Urine Ketones Trace mg/dL (Negative) H 10/08/16 04:15 Ur Squamous Epith Cells Many per lpf (None-Few) H 10/08/16 04:15 Urine Bacteria Many per hpf (None-Few) H 10/08/16 04:15 CSF Glucose 166 mg/dL (40-70) H 10/08/16 04:42 CSF Total Protein 57 mg/dL (15-45) H 10/08/16 04:42 Consult Discharge Plan - Plan Referrals: Yasmin Sal MD [Primary Care Provider] -
[2016-10-10] MEDS ORDERED: Insulin DETEMIR 100 UNIT/ML X5UNITS SQ SCH (21:00)
[2016-10-11] MEDS: Acyclovir 750 MG in D5% in Water 250 ML IVPB SCH ×2 (05:56→16:29)
[2016-10-11] MEDS: *HR* Heparin 5,000 UNIT/ML VIAL SQ SCH ×2 (05:56→17:40)
[2016-10-11] MEDS: *HR* OxyCODONE/APAP 7.5/325 TABLET PO PRN ×2 (06:20→17:48)
[2016-10-11] MEDS: Insulin DETEMIR 100 UNIT/ML X5UNITS SQ SCH ×2 (08:53→21:16)
[2016-10-11] MEDS: Insulin LISPRO 300 UNITS/3 ML VIAL SQ SCH ×5 (08:54→21:10)
[2016-10-11 09:10] LABS: Basophils % 0.3 %; Eosinophils # 0.1 K/mcL (0.0-0.6); Eosinophils % 1.3 %; Hematocrit 33.8 % (35.3-44.9); Hemoglobin 10.9 g/dL (11.5-15.4); Lymphocytes # 1.7 K/mcL (0.6-4.6); Lymphocytes % 23.8 %; Mean Corpuscular HGB Conc 32.2 g/dL (31.6-35.5); Mean Corpuscular Hemoglobin 28.5 pg (28.0-33.3); Mean Corpuscular Volume 88.3 fL (83.0-100.0); Mean Platelet Volume 10.5 fL (9.4-12.4); Monocytes # 0.8 K/mcL (0.0-1.3); Monocytes % 11.8 %; Neutrophils # 4.4 K/mcL (1.6-8.9); Nucleated Red Blood Cells 0.3 /100 WBC (0); Platelet Count 247 K/mcL (140-400); Red Blood Count 3.83 M/mcL (3.82-4.97); Red Cell Distribution Width 13.7 % (11.5-14.5); Segmented Neutrophils % 61.8 %
[2016-10-11 09:19] LABS: BUN/Creatinine Ratio 7 (6-26); Blood Urea Nitrogen 4 mg/dL (7-20); Calcium 8.6 mg/dL (8.6-10.8); Carbon Dioxide 26 mEq/L (19-29); Chloride 104 mEq/L (98-109); Glucose 146 mg/dL (70-99); Magnesium 1.5 mg/dL (1.6-2.6); Osmolality,Calculated 282 (280-300); Phosphorous 2.3 mg/dL (2.3-4.7); Potassium 3.9 mEq/L (3.5-4.5); Sodium 136 mEq/L (136-145); eGFR For African Americans > 60 (> 60); eGFR For Non-African Americans > 60 (> 60)
[2016-10-11] MEDS ORDERED: ALPRAZolam 0.25 MG TABLET PO ONE (10:04)
[2016-10-11] MEDS: 0.9 % Sodium Chloride 1,000 ML IVC SCH ×2 (10:10→21:17)
--- NOTE | 2016-10-11 10:24 | Infectious Disease Progress No ---
Date of Encounter: 10/11/16 Time of Encounter: 10:17 - Assessment and Plan (1) Encephalitis Current Visit: Yes Status: Suspected Resolved. It's etiology not clear, possible viral versus vasculitis versus other CT brain and MRI brain revealed no evidence of acute intracranial abnormality. EEG negative Neurology following CRP decreased from 132 to 72 Patient was initially given Rocephin and Vancomycin on 10/08/16. She has continued Zovirax since 10/08/16 Lumbar puncture revealed clear CSF, glucose 166, total protein 57, and CSF culture shows no growth to date. HSV negative Recommendations: Serum cryptococcal antigen, HIV status pending Discontinue Acyclovir. Infectious etiology is unlikely. Will sign off, please re-consult as needed. Thank you for allowing us to participate in the care of this patient. (2) SIRS (systemic inflammatory response syndrome) Current Visit: Yes Status: Acute On admission she met two SIRS criteria of Temp 102.9 F and Tachycardia 127. Labs on admission revealed WBC within normal limits, lactic acid 2.9, ESR 34, CRP 132 --> 72, glucose 392, Magnesium 1.5, Rheumatoid factor < 15, UDS negative , and urinalysis negative. Blood Cultures x2 collected 10/08/16 show no growth to date. (3) CARLITO positive Current Visit: Yes Status: Acute Current encephalitis symptoms possibly related to vasculitis. Rash unchanged on her anterior chest and arms. Positive CARLITO screen on 08/03/16 and has a Rheumatology appointment scheduled for Oct 24, 2016. (4) Elevated lactic acid level Current Visit: Yes Status: Resolved (5) Diabetes Current Visit: Yes Status: Chronic Qualifiers: Diabetes mellitus type: type 2 Diabetes mellitus complication status: with hyperglycemia Diabetes mellitus detention insulin use: without detention use Qualified Code(s): E11.65 - Type 2 diabetes mellitus with hyperglycemia - Subjective Interval history: Patient seen and examined. No acute events overnight. Patient remains afebrile and denies chills, CP, SOB, N/V/D, abdominal pain, or worsening rash. Infect Dis PN-Objective Data - Labs CBC & Chem 7: 10/11/16 07:45 10/11/16 07:45 Labs: Laboratory Results - last 24 hr 10/09/16 10/09/16 10/10/16 01:16 19:53 07:12 WBC RBC Hgb Hct MCV MCH MCHC RDW Plt Count MPV Immature Gran % Seg Neutrophils % Lymphocytes % Monocytes % Eosinophils % Basophils % Neutrophils # Lymphocytes # Monocytes # Eosinophils # Basophils # Nucleated RBCs/100 WBC Sodium Potassium Chloride Carbon Dioxide BUN Creatinine Est GFR ( Amer) Est GFR (Non-Af Amer) BUN/Creatinine Ratio Glucose POC Glucose 254 H 196 H Calculated Osmolality Calcium Phosphorus Magnesium T.pallidum Ab Interpret NEGATIVE Chlam trachomat DNA PCR N.gonorrhoeae DNA (PCR) 10/10/16 10/10/16 10/10/16 12:14 16:13 20:47 WBC RBC Hgb Hct MCV MCH MCHC RDW Plt Count MPV Immature Gran % Seg Neutrophils % Lymphocytes % Monocytes % Eosinophils % Basophils % Neutrophils # Lymphocytes # Monocytes # Eosinophils # Basophils # Nucleated RBCs/100 WBC Sodium Potassium Chloride Carbon Dioxide BUN Creatinine Est GFR ( Amer) Est GFR (Non-Af Amer) BUN/Creatinine Ratio Glucose POC Glucose 226 H 198 H Calculated Osmolality Calcium Phosphorus Magnesium T.pallidum Ab Interpret Chlam trachomat DNA PCR NOT DETECTED N.gonorrhoeae DNA (PCR) NOT DETECTED 10/10/16 10/11/16 10/11/16 20:50 07:45 07:45 WBC 7.1 RBC 3.83 Hgb 10.9 L Hct 33.8 L MCV 88.3 MCH 28.5 MCHC 32.2 RDW 13.7 Plt Count 247 MPV 10.5 Immature Gran % 1.0 Seg Neutrophils % 61.8 Lymphocytes % 23.8 Monocytes % 11.8 Eosinophils % 1.3 Basophils % 0.3 Neutrophils # 4.4 Lymphocytes # 1.7 Monocytes # 0.8 Eosinophils # 0.1 Basophils # 0.0 Nucleated RBCs/100 WBC 0.3 H Sodium 136 Potassium 3.9 Chloride 104 Carbon Dioxide 26 BUN 4 L Creatinine 0.57 Est GFR ( Amer) > 60 Est GFR (Non-Af Amer) > 60 BUN/Creatinine Ratio 7 Glucose 146 H POC Glucose 215 H Calculated Osmolality 282 Calcium 8.6 Phosphorus 2.3 Magnesium 1.5 L T.pallidum Ab Interpret Chlam trachomat DNA PCR N.gonorrhoeae DNA (PCR) Cultures: Serology 10/10/16 10/09/16 Range/Units 20:47 01:16 T.pallidum Ab Interpret NEGATIVE (NEGATIVE) Chlam trachomat DNA PCR NOT DETECTED (Not Detect) N.gonorrhoeae DNA (PCR) NOT DETECTED (Not Detect) Exam - Constitutional Vitals: Temp Pulse Resp BP Pulse Ox 98.5 F 99 14 124/75 94 10/11/16 07:19 10/11/16 07:19 10/11/16 07:19 10/11/16 07:19 10/11/16 07:19 General appearance: febrile, cooperative, no acute distress, obese - Head Head exam: Present: atraumatic, normal inspection, normocephalic - Eye Eye exam: Present: PERRL - ENT ENT exam: Present: mucous membranes moist, normal oropharynx - Neck Neck exam: Present: full ROM, normal inspection. Absent: meningismus, tenderness - Respiratory Respiratory exam: Present: CTAB - Cardiovascular Cardiovascular exam: Present: +S1, +S2, tachycardia - GI/Abdominal GI/Abdominal exam: Present: normal bowel sounds, soft. Absent: guarding, rebound, tenderness - Extremities Exam Extremities exam: Present: full ROM, normal inspection. Absent: pedal edema - Neurological Exam Neurological exam: Present: alert, CN II-XII intact, oriented X3, no focal deficits. Absent: altered, motor sensory deficit - Psychiatric Psychiatric exam: Present: normal affect, normal mood - Skin Skin exam: Present: dry, erythema (mild erythema over anterior chest and arms, unchanged), normal color, warm. Absent: urticaria Consult Discharge Plan - Plan Referrals: Yasmin Sal MD [Primary Care Provider] - - Attending Attestation I examined this patient and my medical decision-making was reviewed with the Resident Physician. I agree with the documented findings, disposition and treatment plan as described except to the extent set forth below.
--- NOTE | 2016-10-11 11:40 | Internal Med Progress Note ---
Date of Encounter: 10/11/16 Time of Encounter: 11:38 - Assessment and plan (1) Encephalitis Current Visit: Yes Status: Suspected Assessment and plan: Clinically improving mental status at baseline ID consultation appreciatedd HSV negative however continue Acyclovir as per ID's recommendations d/c planning pending clearance for ID. Will restart home dose of Gabapentin and Amitriptyline Code(s): G04.90 - Encephalitis and encephalomyelitis, unspecified (2) Altered mental status Current Visit: Yes Status: Resolved Assessment and plan: Resolved Neurology evaluation appreciated pt scheduled for MRA later today Qualifiers: Altered mental status type: disorientation Qualified Code(s): R41.0 - Disorientation, unspecified (3) Fever of unknown origin Current Visit: Yes Status: Resolved (4) Diabetes Current Visit: Yes Status: Chronic Assessment and plan: Noted to remain hyperglycemic increased levemir to 24units q12h humalog 4units TIDAC continue insulin ss algorithm monitor FS and BG ADA diet Qualifiers: Diabetes mellitus type: type 2 Diabetes mellitus complication status: with hyperglycemia Diabetes mellitus parts counterman insulin use: without parts counterman use Qualified Code(s): E11.65 - Type 2 diabetes mellitus with hyperglycemia (5) Hypomagnesemia Current Visit: Yes Status: Acute Assessment and plan: Mg supplemented continue to monitor electrolytes and replace as needed (6) DVT prophylaxis Current Visit: Yes Status: Acute Assessment and plan: Heparin SQ - Subjective Interval history: Pt seen and examined. Resting in chair and reports of diffuse headache which is chronic in nature. States she takes gabapentin and amitriptyline at home which provides her with appropriate relief. Denies any other discomfort at this time. Requested something for anxiety prior to her MRA later today. No overnight issues reported. Mental status back to baseline. - Constitutional Vitals: Temp Pulse Resp BP Pulse Ox 98.5 F 99 14 124/75 94 10/11/16 07:19 10/11/16 07:19 10/11/16 07:19 10/11/16 07:19 10/11/16 07:19 General appearance: Present: cooperative, A&O X 3, morbidly obese, no acute distress, answers questions appropriately - Head Head exam: Present: atraumatic, normocephalic - Eye Eye exam: Present: conjuntiva pink, sclera anicteric - Respiratory Respiratory exam: Present: CTAB. Absent: respiratory distress, wheezes - Cardiovascular Cardiovascular exam: Present: RRR, +S1, +S2. Absent: diastolic murmur, gallop, rubs, systolic murmur - GI/Abdominal GI/Abdominal exam: Present: normal bowel sounds, soft, no peritoneal signs. Absent: distended, tenderness - Extremities Exam Extremities exam: Present: warm, radial pulses palpable and symmetrical. Absent : calf tenderness, cyanotic, pedal edema - Neurological Exam Neurological exam: Present: alert, oriented X3 - Psychiatric Psychiatric exam: Present: normal affect, normal mood Internal Medicine: Result - Labs CBC & Chem 7: 10/11/16 07:45 10/11/16 07:45 Labs: Short CBC 10/11/16 Range/Units 07:45 WBC 7.1 (4.3-11.1) K/mcL Hgb 10.9 L (11.5-15.4) g/dL Hct 33.8 L (35.3-44.9) % Plt Count 247 (140-400) K/mcL Neutrophils # 4.4 (1.6-8.9) K/mcL BMP 10/11/16 07:45 Sodium 136 Potassium 3.9 Chloride 104 Carbon Dioxide 26 BUN 4 L Creatinine 0.57 Glucose 146 H Calcium 8.6 - ABG Interpretation ABG results: PT/INR, D-dimer PT 13.0 Seconds (9.4-12.1) H 10/08/16 02:40 Consult Discharge Plan - Plan Referrals: Yasmin Sal MD [Primary Care Provider] -
[2016-10-11] MEDS ORDERED: Magnesium Sulfate 1 GM in D5% in Water 100 ML IVPB ONE (13:00)
[2016-10-11] MEDS: Gabapentin 400 MG CAPSULE PO SCH ×2 (14:42→21:15)
[2016-10-12] MEDS: *HR* Heparin 5,000 UNIT/ML VIAL SQ SCH (05:08)
[2016-10-12 05:22] LABS: Basophils % 0.6 %; Eosinophils # 0.1 K/mcL (0.0-0.6); Eosinophils % 1.3 %; Hematocrit 41.1 % (35.3-44.9); Immature Granulocytes % 2.7 % (0-4); Lymphocytes # 2.3 K/mcL (0.6-4.6); Lymphocytes % 32.2 %; Mean Corpuscular HGB Conc 31.6 g/dL (31.6-35.5); Mean Corpuscular Hemoglobin 28.5 pg (28.0-33.3); Mean Corpuscular Volume 90.1 fL (83.0-100.0); Mean Platelet Volume 9.3 fL (9.4-12.4); Monocytes # 0.8 K/mcL (0.0-1.3); Monocytes % 11.4 %; Neutrophils # 3.7 K/mcL (1.6-8.9); Nucleated Red Blood Cells 0.9 /100 WBC (0); Platelet Count 290 K/mcL (140-400); Red Blood Count 4.56 M/mcL (3.82-4.97); Red Cell Distribution Width 13.7 % (11.5-14.5); Segmented Neutrophils % 51.8 %
[2016-10-12 05:42] LABS: BUN/Creatinine Ratio 5 (6-26); Calcium 9.5 mg/dL (8.6-10.8); Carbon Dioxide 23 mEq/L (19-29); Chloride 105 mEq/L (98-109); Glucose 90 mg/dL (70-99); Magnesium 1.8 mg/dL (1.6-2.6); Osmolality,Calculated 282 (280-300); Phosphorous 2.8 mg/dL (2.3-4.7); Potassium 3.6 mEq/L (3.5-4.5); Sodium 138 mEq/L (136-145); eGFR For African Americans > 60 (> 60); eGFR For Non-African Americans > 60 (> 60)
[2016-10-12 05:47] LABS: Blood Urea Nitrogen 3 mg/dL (7-20)
[2016-10-12] MEDS: Insulin LISPRO 300 UNITS/3 ML VIAL SQ SCH ×4 (08:10→12:42)
[2016-10-12] MEDS: Lisinopril 20 MG TABLET PO SCH ×2 (08:12→12:17)
[2016-10-12] MEDS: Gabapentin 400 MG CAPSULE PO SCH (08:12)
[2016-10-12 08:29] LABS: HSV 2 Glycoprotein G IgG 0.08 IV (<=0.90)
[2016-10-12] MEDS: *HR* OxyCODONE/APAP 7.5/325 TABLET PO PRN (09:38)
[2016-10-12] MEDS: Insulin DETEMIR 100 UNIT/ML X5UNITS SQ SCH (09:39)
--- NOTE | 2016-10-12 12:51 | Discharge Summary ---
Date of Encounter: 10/12/16 Time of Encounter: 08:15 - Discharge Diagnosis (1) Encephalitis Priority: Primary Status: Suspected Code(s): G04.90 - Encephalitis and encephalomyelitis, unspecified (2) Altered mental status Priority: Primary Status: Resolved Qualifiers: Altered mental status type: disorientation Qualified Code(s): R41.0 - Disorientation, unspecified (3) Fever of unknown origin Priority: Primary Status: Resolved (4) Diabetes Priority: Secondary Status: Chronic Qualifiers: Diabetes mellitus type: type 2 Diabetes mellitus complication status: with hyperglycemia Diabetes mellitus intermediate accountant insulin use: without [place] [facility] use Qualified Code(s): E11.65 - Type 2 diabetes mellitus with hyperglycemia (5) Hypomagnesemia Priority: Secondary Status: Resolved (6) DVT prophylaxis Priority: Secondary Status: Acute - Discharge Medications Home Medications: Hydrocodone/Acetaminophen [[place] 5-325 Tablet] 1 tab PO TID PRN #10 tab [Rx] Amitriptyline HCl 100 mg PO HS 10/08/16 [History] Aspirin [Lo-Dose Aspirin EC] 81 mg PO DAILY 10/08/16 [History] Gabapentin [Neurontin] 800 mg PO TID 10/08/16 [History] Glimepiride [Amaryl] 1 mg PO DAILY 10/08/16 [History] Lisinopril [Zestril] 20 mg PO DAILY 10/08/16 [History] Metformin HCl [Glucophage] 1,000 mg PO QAM 10/08/16 [History] Pioglitazone [Actos] 15 mg PO DAILY 10/08/16 [History] Allergies/Adverse Reactions: Allergies No Known Allergies Allergy (Verified 10/08/16 02:06) Procedures/tests Complete & Pending: Procedures Performed prior 72 hours Category Date Time Status ECG 12 lead ECG [ECG] Routine Y 10/09/16 22:55 Completed Date of admission: 10/08/16 08:58 Primary care physician: Yasmin Sal MD Consults: 10/09/16 11:23 Consult to Infectious Diseases [CONS] Routine Consulting Provider: Armando Disease Libia Reason for Consult: Possible encephalitis Call Completed: No 10/10/16 11:30 Consult to Interpret Exam [CONS] Routine Consulting Provider: Fly Scherer Consult to Interpret Exam: Interpret EEG Discharging clinician: Jolie Mesa Anticipated date of discharge: 10/12/16 - Patient Status Disposition: Home, Self-Care Condition: Good Functional capacity at discharge: independent ambulation Overall status at discharge: patient is back to baseline - Discharge Instructions Follow Up With: Yasmin Sal MD [Primary Care Provider] - 10/19/16 12:00 pm Additional Instructions: Please follow up with your primary care physician within one week after your discharge from the hospital. Please resume all your home medications as prescribed by your primary care physician. Please closely monitor your blood glucose at home. Please follow up with neurology within one to two weeks after your discharge from the hospital. - Diet and Activity Activity: resume usual activities as tolerated Diet: diabetic diet, low salt diet Hospital course: Ms. Wood is a 50 year old female with PMH of HTN, DM, Fibromyalgia who was admitted for management of AMS. Pt had a LP done in the ER which was concerning for viral encephalitis for which she was started on empiric antivirals and antibiotics. She was also followed by infectious disease and neurology. Neurology recommended MRA to rule out vasculitis however patient refused exam. She also has history of CARLITO positive for which she already has a scheduled appointment with a certified substance abuse counselor on October 24, 2016. Her antibiotic therapy was discontinues as per culture results. She clinically improved and has returned to baseline mental status. she is ambulating well around the room and denies any discomfort. Her HSV PCR was negative due to which her acyclovir was discontinued. At this time she is hemodynamically stable and is off antibiotics and antivirals. She will be discharged to home with follow up with PCP, neurology. Pt demonstrates understanding of her diagnosis and agrees with the discharge care and plan. - Time Spent with Patient Total time spent providing and/or coordinating discharge services: Greater than 30 minutes - Constitutional Vitals: Temp Pulse Resp BP Pulse Ox 98.7 F 107 14 142/80 97 10/12/16 10:25 10/12/16 10:25 10/12/16 10:25 10/12/16 12:36 10/12/16 10:25 General appearance: Present: cooperative, A&O X 3, morbidly obese, no acute distress, answers questions appropriately - Head Head exam: Present: atraumatic, normocephalic - Eye Eye exam: Present: conjuntiva pink, sclera anicteric - Respiratory Respiratory exam: Present: CTAB. Absent: accessory muscle use, rales, rhonchi, wheezes - Cardiovascular Cardiovascular exam: Present: RRR, +S1, +S2. Absent: diastolic murmur, gallop, rubs, systolic murmur - GI/Abdominal GI/Abdominal exam: Present: normal bowel sounds, soft, no peritoneal signs. Absent: distended, tenderness - Extremities Exam Extremities exam: Present: warm, radial pulses palpable and symmetrical. Absent : calf tenderness - Neurological Exam Neurological exam: Present: alert, oriented X3 - Psychiatric Psychiatric exam: Present: normal affect, normal mood
[2016-10-12 13:28] VITALS: BP 124/76
[2016-10-13 07:05] LABS: Herpes Simplex PCR Qual Res NOT DETECTED
[2016-10-13 07:13] LABS: Herpes Simplex IgG (I&II COMB) >22.40 IV
== END 2016-10-12 13:53 | disposition home or self-care (01) | DRG 98 ==
LOC: EMEROO 01:58 → 2ANU 01:58 → 3NENU 07:08 → SUATTDRO 08:58 → 3ANU 10-10 12:03
PROVIDERS: ADMIT Internal Medicine; ATTEND Internal Medicine

== ENCOUNTER 2020-06-01 13:50 | Observation (INO) ==
[2020-06-01] MEDS ORDERED: Ondansetron 4 MG/2 ML VIAL IVP ONE (15:00)
[2020-06-01] MEDS ORDERED: 0.9 % Sodium Chloride 1,000 ML IV ONE (15:00)
[2020-06-01] MEDS ORDERED: Morphine Sulfate 2 MG/ML SYRINGE IVP ONE (15:00)
[2020-06-01 15:31] LABS: Basophils % 0.5 %; Eosinophils % 0.3 %; Hematocrit 42.2 % (35.3-44.9); Hemoglobin 14.3 g/dL (11.5-15.4); Immature Granulocytes % 0.3 % (0-4); Lymphocytes % 38.6 %; Mean Corpuscular HGB Conc 33.9 g/dL (31.6-35.5); Mean Corpuscular Volume 91.3 fL (83.0-100.0); Mean Platelet Volume 9.5 fL (9.4-12.4); Monocytes # 0.9 K/mcL (0.0-1.3); Monocytes % 11.1 %; Neutrophils # 3.9 K/mcL (1.6-8.9); Platelet Count 371 K/mcL (140-400); Red Blood Count 4.62 M/mcL (3.82-4.97); Red Cell Distribution Width 12.2 % (11.5-14.5); Segmented Neutrophils % 49.2 %; White Blood Count 7.8 K/mcL (4.3-11.1)
[2020-06-01 15:36] LABS: INR 1.1; Prothrombin Time 12.6 Seconds (9.4-12.1)
[2020-06-01 15:44] LABS: Alanine Aminotransferase 22 Units/L (7-52); Albumin 4.2 g/dL (3.5-5.7); Albumin/Globulin Ratio 1.3 (1.1-2.2); Alkaline Phosphatase 95 Units/L (34-104); Aspartate Amino Transferase 22 Units/L (13-39); BUN/Creatinine Ratio 20 (6-26); Bilirubin,Total 0.4 mg/dL (0.3-1.0); Blood Urea Nitrogen 12 mg/dL (6-20); Calcium 9.3 mg/dL (8.6-10.3); Carbon Dioxide 28 mEq/L (23-29); Chloride 98 mEq/L (98-107); Globulin 3.2 g/dL (2.4-3.5); Glucose 228 mg/dL (70-105); Osmolality,Calculated 287 (280-300); Potassium 3.8 mEq/L (3.5-5.1); Sodium 135 mEq/L (136-145); Total Protein 7.4 g/dL (6.4-8.9); Troponin I < 0.03 ng/mL (< 0.04); eGFR For African Americans > 60 (> 60); eGFR For Non-African Americans > 60 (> 60)
[2020-06-01 16:50] LABS: Bacteria,Urine Few per hpf (None-Few); Bilirubin,Urine Negative (Negative); Blood,Urine Negative (Negative); Budding Yeast,Urine Few per hpf (None Seen); Clarity,Urine Clear (Clear); Color,Urine Light-Yellow (Yellow); Glucose,Urine (UA) >=1000 mg/dL (Normal); Ketones,Urine Negative (Negative); Leukocyte Esterase,Urine Trace (Negative); Mucus,Urine Few per lpf (None-Few); Nitrite,Urine Negative (Negative); Protein,Urine Trace mg/dL (Neg-Trace); RBC,Urine 15-30 per hpf (0-3); Specific Gravity,Urine 1.028 (1.010-1.025); Squamous Epithelial Cell,Urine Few per hpf (None-Few); Urobilinogen,Urine Normal (Normal)
[2020-06-01] MEDS ORDERED: Mag Hydrox/Al Hydrox/Simeth 30 ML UDC PO PRN (17:28)
[2020-06-01] MEDS ORDERED: Naloxone 0.4 MG/ML INJ IVP PRN (17:28)
[2020-06-01] MEDS ORDERED: MOM Conc 10 ML UD.LIQ PO PRN (17:28)
[2020-06-01] MEDS ORDERED: Ondansetron ODT 4 MG TAB.RAPDIS SL PRN (17:28)
[2020-06-01] MEDS ORDERED: Perflutren Lipid Microsphere 1.3 ML in 0.9 % Sodium Chloride 8.7 ML IVP PRN (17:31)
[2020-06-01] MEDS ORDERED: Dextrose Gel 15 GM/37.5 ML TUBE PO PRN ×2 (17:32)
[2020-06-01] MEDS ORDERED: *HR* Dextrose 50 % in Water (Vial) 50 ML VIAL IVP PRN (17:32)
[2020-06-01] MEDS ORDERED: D5% in Water 1,000 ML IVC PRN (17:32)
[2020-06-01] MEDS ORDERED: *HR* LORazepam 2 MG/ML VIAL IVP ONE (17:34)
[2020-06-01] MEDS: Insulin LISPRO 300 UNITS/3 ML VIAL SUBQ SCH (18:45)
[2020-06-01] MEDS: *HR* OxyCODONE Immed Rel 5 MG TABLET PO PRN (19:24)
[2020-06-01] MEDS ORDERED: Insulin LISPRO 300 UNITS/3 ML VIAL SUBQ SCH (21:00)
[2020-06-01] MEDS ORDERED: Melatonin 3 MG TABLET PO PRN (21:00)
[2020-06-02] MEDS: *HR* OxyCODONE Immed Rel 5 MG TABLET PO PRN ×3 (00:21→09:49)
[2020-06-02] MEDS ORDERED: *HR* Enoxaparin 40 MG/0.4 ML SYRINGE SQ SCH (06:00)
[2020-06-02 06:40] LABS: Hematocrit 41.1 % (35.3-44.9); Hemoglobin 13.5 g/dL (11.5-15.4); Mean Corpuscular HGB Conc 32.8 g/dL (31.6-35.5); Mean Corpuscular Hemoglobin 29.8 pg (28.0-33.3); Mean Corpuscular Volume 90.7 fL (83.0-100.0); Mean Platelet Volume 9.4 fL (9.4-12.4); Platelet Count 302 K/mcL (140-400); Red Blood Count 4.53 M/mcL (3.82-4.97); Red Cell Distribution Width 12.1 % (11.5-14.5)
[2020-06-02 07:11] LABS: Alanine Aminotransferase 19 Units/L (7-52); Albumin 3.7 g/dL (3.5-5.7); Albumin/Globulin Ratio 1.3 (1.1-2.2); Alkaline Phosphatase 81 Units/L (34-104); Aspartate Amino Transferase 22 Units/L (13-39); BUN/Creatinine Ratio 16 (6-26); Bilirubin,Total 0.7 mg/dL (0.3-1.0); Blood Urea Nitrogen 9 mg/dL (6-20); Carbon Dioxide 28 mEq/L (23-29); Chloride 99 mEq/L (98-107); Chol/HDL Ratio 6.3 (0-4.9); Cholesterol 202 mg/dL (< 200); Globulin 2.9 g/dL (2.4-3.5); Glucose 160 mg/dL (70-105); HDL Cholesterol 32 mg/dL (40-59); LDL Cholesterol,Calculated 136 mg/dL (< 100); Osmolality,Calculated 284 (280-300); Potassium 3.5 mEq/L (3.5-5.1); Sodium 136 mEq/L (136-145); Total Protein 6.6 g/dL (6.4-8.9); Triglycerides 172 mg/dL (< 150); eGFR For African Americans > 60 (> 60); eGFR For Non-African Americans > 60 (> 60)
[2020-06-02] MEDS ORDERED: *HR* LORazepam 2 MG/ML VIAL IVP ONE (09:41)
[2020-06-02] MEDS: Insulin LISPRO 300 UNITS/3 ML VIAL SUBQ SCH ×2 (12:10→12:36)
[2020-06-02 15:06] VITALS: BP 118/72
== END 2020-06-02 17:16 | disposition home or self-care (01) ==
LOC: 3BNU 13:50 → EMEROOARM 13:50 → SUATTDRO 17:02 → 3BNU 18:00
PROVIDERS: ADMIT Internal Medicine; ATTEND Registered Nurse